=== PATIENT | male | born 1970 | race Caucasian/White ===

== ENCOUNTER 2021-03-03 23:08 | Emergency (ER) | payer OTHER ==
[~2021-03-03] VITALS: Ht 182.9 cm; Wt 65.8 kg
[~2021-03-03 23:08] MED LIST: Insulin Detemir SC
[2021-03-04 01:20] LABS: Basophils # (auto) 0.1 10 ^3/uL (0-0.2); Basophils % (auto) 0.5 % (0.0-2.0); Eosinophils # (auto) 0 10 ^3/uL (0-0.8); Hemoglobin 12.4 g/dL (13.5-17.5); Lymphocytes # (auto) 0.7 10 ^3/uL (0.4-5.4); Lymphocytes % (auto) 4.6 % (10.0-50.0); Mean Corpuscular Hemoglobin 32.6 pg (28.0-32.0); Mean Corpuscular Hgb Conc. 34.6 g/dL (32.0-36.0); Mean Corpuscular Volume 94.2 fL (80.0-100.0); Monocytes # (auto) 1.4 10 ^3/uL (0-1.3); Monocytes % (auto) 9.9 % (0.0-12.0); Neutrophils # (auto) 12.4 10 ^3/uL (1.6-8.6); Red Blood Cells 3.82 10^6/uL (4.5-5.90); Red Cell Distribution Width 12.6 % (11.8-14.3); White Blood Cell 14.6 10^3/uL (4.4-10.8)
[2021-03-04 01:35] LABS: Urine Bacteria FEW /hpf (None Seen); Urine Blood Negative /uL (Negative); Urine Hyaline Cast MOD /lpf (0 - 2); Urine Mucus FEW (None Seen); Urine Specific Gravity 1.014 (1.001-1.035); Urine Sperm PRESENT /hpf (None Seen); Urine WBC 1 /hpf (0 - 3)
[2021-03-04 01:36] LABS: Albumin 2.9 g/dL (3.4-5.0); BUN/Creatinine Ratio 14.5; Calcium 7.4 mg/dL (8.5-10.1); Potassium 4.4 mmol/L (3.5-5.1)
[2021-03-04 01:48] LABS: Bilirubin, Total 0.7 mg/dL (0.2-1.0); Total Protein 6.2 g/dL (6.4-8.2)
[2021-03-04] MEDS ORDERED: InsuLIN REG 1unit/0.01ml Soln (100units/ml) IV ONE (02:15)
[2021-03-04] MEDS ORDERED: SODIUM CHLORIDE 0.9% 1,000 ML IV ONE (02:15)
[2021-03-04] MEDS ORDERED: DEXTROSE (50%) 50ML SYRG IV PRN (03:45)
[2021-03-04] MEDS ORDERED: INSULIN LANTUS (GLARGINE) 1 /0.01ml (100units/ml) SC ONE (03:45)
[2021-03-04] MEDS ORDERED: InsuLIN REG 1unit/0.01ml Soln (100units/ml) ONE (03:54)
[2021-03-04] MEDS: SODIUM CHLORIDE 0.9% 1,000 ML IV SCH ×2 (03:59→06:07)
[2021-03-04] MEDS: InsuLIN R (HUMAN) 100 UNITS in SODIUM CHL 0.9% 99 ML IV SCH ×2 (03:59→04:59)
[2021-03-04] MEDS: ACCU-CHEK COMFORT CURVE STRIP VI SCH ×5 (04:57→10:30)
[2021-03-04] MEDS ORDERED: SODIUM CHLORIDE 0.9% 1,000 ML IV SCH ×2 (07:45→09:45)
[2021-03-04 09:59] LABS: BUN/Creatinine Ratio 15.5; Calcium 7.4 mg/dL (8.5-10.1); Potassium 3.8 mmol/L (3.5-5.1)
[2021-03-04] MEDS ORDERED: D5W/SOD CHLO 0.9% 1,000 ML IV ONE (10:00)
[2021-03-04 10:28] VITALS: BP 103/67
[2021-03-05] MEDS ORDERED: INSULIN LANTUS (GLARGINE) 1 /0.01ml (100units/ml) SC SCH (10:00)
== END 2021-03-04 10:52 | disposition short-term general hospital (02) ==
LOC: EDBD 23:08 → ER 23:08
DX: E11.65 Type 2 diabetes mellitus with hyperglycemia (principal); R07.89 Other chest pain; Z98.890 Other specified postprocedural states; Z20.822 Contact with and (suspected) exposure to COVID-19
CPT/HCPCS: 36415; 36600; 71045; 80048; 80053; 81001; 82010; 82805; 82962; 83690; 83930; 84100; 85025; 87426; 93005; 96361; 96365; 96366; 96367; 96372; 96376; 99285; J1815; J7030

== ENCOUNTER 2024-08-18 00:19 | Inpatient (IN) | payer OTHER ==
[~2024-08-18] VITALS: Ht 180.3 cm; Wt 85.0 kg
--- NOTE | 2024-08-18 00:57 | ED.PDOC ---
History of Present Illness HPI Comments 53 y/o M, with a history of ALE, DKA, metabolic encephalopathy, SIRS, mitral valve prolapse s/p aortic valve replacement, and DMII w/insulin use, is BIBA for c/o hypoglycemia, today. Per EMS report, patient was found with a blood glucose of 44 on scene after staff were called, due to patient acting altered from his usual baseline. En route, patient was given 1x D10 dose, with blood glucose levels remeasured at a value of 200 s/p. Upon arrival to ED, patient is stated to be A&Ox2, currently, and had a remeasured blood glucose value of 82. Patient, at time of assessment, has no recollection of his insulin medication names or series of events that led to his visit and denies having any additional symptoms. Per previous ED medical records, patient takes Lantus 30 units SC qam and Humulin R per patient's sliding scale, which the patient, upon inquiry, admits to. Chief Complaint: Hypoglycemia Time Seen by MD: 00:25 Primary Care Provider: UNKNOWN Reviewed Notes: Nurses Notes, Developmental Writing Instructor Notes, Medications, Allergies Allergies: Coded Allergies: NO KNOWN ALLERGIES (Unverified , 10/31/14) Home Meds Active Scripts [Insulin Detemir] 100 UNITS/ML UNITS No Conflict Check, 30 UNITS SC QAM, #200 UNITS Prov:HIRAL ORELLANA MD 11/03/14 Information Source: Patient, Emergency Med Personnel Mode of Arrival: EMS Severity: Moderate Timing: Hours Duration: Since onset Prehospital treatment: 12 Lead EKG, Accucheck, Casting And Pasting Supervisor, Other (D10) Past Medical History PAST MEDICAL HISTORY: DM (type II w/insulin use ) Past Medical History (Other): ALE, DKA, metabolic encephalopathy, SIRS, mitral valve prolapse s/p aortic valve prolapse Lantus 30 units SC qam. Humulin R per patient's sliding scale. Surgical History (Other): Aortic valve replacement Family History Family History: Unknown Social History Smoker: Cigarettes Alcohol: Heavy Drugs: Denies Drug Use Lives In: Home Endocrine: reports: others (hypoglycemia ) All Other Systems: Reviewed and Negative (negative unless otherwise stated above or in HPI) Physical Exam General Appearance: No Apparent Distress, Normal, Other (tired appearing ) HEENT: Normal ENT Inspection, Pharynx Normal, TMs Normal Neck: Full Range of Motion, Non-Tender, Normal, Normal Inspection Respiratory: Chest Non-Tender, Lungs Clear, No Accessory Muscle Use, No Respiratory Distress, Normal Breath Sounds Cardiovascular: No Edema, No JVD, No Murmur, No Gallop, Normal Peripheral Pulses, Regular Rate/Rhythm Breast Exam: Deferred Gastrointestinal: No Organomegaly, Non Tender, No Pulsatile Mass, Normal Bowel Sounds, Soft Genitalia: Deferred Pelvic: Deferred Rectal: Deferred Extremities: No calf tenderness, Normal capillary refill, Normal inspection, Normal range of motion, Non-tender, No pedal edema Musculoskeletal : Apperance: Normal Neurologic: Alert, stockroom helper II-XII nml as Tested, No Motor Deficits, Normal Affect, Normal Mood, No Sensory Deficits Cerebellar Function: Normal Reflexes: Normal Skin: Dry, Normal Color, Warm Lymphatic: No Adenopathy Was a procedure done? Was a procedure done?: No Differential Dx Considerations may include: hypoglycemia, inappropriate medication dosage, encephalopathy X-Ray, Labs, Meds, VS Vital Signs Date Time Temp Pulse Resp B/P (MAP) Pulse Ox O2 Delivery O2 Flow Rate FiO2 08/18/24 02:58 97.7 08/18/24 02:25 81 14 97 Room Air* 0 21 08/18/24 02:25 97.7 81 14 136/95 (109) 97 97.7 08/18/24 00:25 99.2 104 18 102/64 (77) 96 Lab Test 08/18/24 02:07 08/18/24 01:33 08/18/24 01:32 08/18/24 00:55 Range/Units POC Glucose 146 H 26 *L 29 *L 70-106 mg/dl White Blood Count 8.0 4.4-10.8 10^3/uL Red Blood Count 3.55 L 4.5-5.90 10^6/uL Hemoglobin 11.0 L 13.5-17.5 g/dL Hematocrit 32.9 L 41.0-53.0 % Mean Corpuscular Volume 92.6 80.0-100.0 fL Mean Corpuscular Hemoglobin 30.9 28.0-32.0 pg Mean Corpuscular Hemoglobin Concent 33.4 32.0-36.0 g/dL Red Cell Distribution Width 14.2 11.8-14.3 % Platelet Count 190 140-450 10^3/uL Mean Platelet Volume 9.5 6.9-10.8 fL Neutrophils (%) (Auto) 70.8 37.0-80.0 % Lymphocytes (%) (Auto) 18.4 10.0-50.0 % Monocytes (%) (Auto) 7.3 0.0-12.0 % Eosinophils (%) (Auto) 2.3 0.0-7.0 % Basophils (%) (Auto) 1.2 0.0-2.0 % Neutrophils # (Auto) 5.7 1.6-8.6 10 ^3/uL Lymphocytes # (Auto) 1.5 0.4-5.4 10 ^3/uL Monocytes # (Auto) 0.6 0-1.3 10 ^3/uL Eosinophils # (Auto) 0.2 0-0.8 10 ^3/uL Basophils # (Auto) 0.1 0-0.2 10 ^3/uL Nucleated Red Blood Cells 0.0 % Sodium Level 144 136-145 mmol/L Potassium Level 4.3 3.5-5.1 mmol/L Chloride Level 112 H 98-107 mmol/L Carbon Dioxide Level 25 20-31 mmol/L Anion Gap 7 5-15 Blood Urea Nitrogen 25 H 9-23 mg/dL Creatinine 1.54 H 0.700-1.30 mg/dL Glomerular Filtration Rate Calc 54 >90 mL/min BUN/Creatinine Ratio 16.2 10.0-20.0 Serum Glucose 33 *L 74-106 mg/dL Calcium Level 9.6 8.7-10.4 mg/dL Total Bilirubin 0.2 0.2-1.0 mg/dL Aspartate Amino Transferase (AST) 53 H 13-40 U/L Alanine Aminotransferase (ALT) 56 H 7-40 U/L Alkaline Phosphatase 70 46-116 U/L Total Protein 6.3 5.7-8.2 g/dL Albumin 3.6 3.2-4.8 g/dL Current Medications Medications (Trade) Dose Ordered Sig/Staci Route Start Time Stop Time Status Last Admin Dextrose 100 ml ONCE ONCE IV 08/18/24 01:45 08/18/24 01:46 DC 08/18/24 01:41 Acetaminophen (Tylenol Tablet) 1,000 mg ONCE ONCE PO 08/18/24 02:15 08/18/24 02:16 DC 08/18/24 02:15 [facility] [id number] [facility] [address] Ph: [phone] DIAGNOSTIC IMAGING Diagnostic Imaging Report : [id number] Signed PATIENT: SHELBY MCCOLLUM ACCT: [id number] UNIT: [id number] : 1970 LOC: ER ROOM / BED: / AGE / SEX: 53 / M ADM STATUS: REG ER SERVICE ORDERING PHYSICIAN: YAHIR LOPEZ MD PROCEDURE(s): CXRP - CHEST PORTABLE REASON: weakness, hypoglycemia ORDER NUMBER(s): [id number], ACCESSION NUMBER(s): [id number] CHEST RADIOGRAPH Indication: weakness, hypoglycemia Technique: Single frontal view of the chest was obtained Comparison: CHEST XRAY 1 VIEW on DOS: 03/04/21 Findings/ IMPRESSION: Postsurgical changes of the mediastinum. Right lower lung zone patchy opacification concerning for developing airspace disease. Chronic right posterior rib fractures. ATED BY: KENA CORREIA DO DICTATED DATE/TIME: 08/18/24114 SIGNED BY: KENA CORREIA DO SIGNED DATE/TIME: 08/18/24114 CC: Time of 1ST Reevaluation: 00:55 Reevaluation 1ST: Unchanged Patient Education/Counseling: Diagnosis, Treatment Family Education/Counseling: No Family Present Additional Information I reviewed the following notes from patient's past medical encounters: ED physician document 03/03/2021 and 10/31/2014 and hospital admission discharge summary report on 11/03/2014 The following tests were ordered, and results were reviewed by me: CXR, drug screen, UA, CMP, CBC \ Additional Information was gathered from interviewing the following independent historians: EMT I reviewed and agreed with the following test results read by other providers: CXR I discussed treatment and results with medical personnel Departure 1 Departure Time of Disposition: 03:47 ([place] [id number]. We will admit patient for uncontrolled diabetes.) Impression: Primary Impression: Uncontrolled diabetes mellitus Qualified Codes: E11.649 - Type 2 diabetes mellitus with hypoglycemia without coma Additional Impression: Metabolic encephalopathy Disposition: 09 ADMITTED INPATIENT Admit to: Med Surg Condition: Serious Critical Care Note Critical Care Time?: Yes Critical care comment: Acute hypoglycemia Authorized and Performed by: Yahir Lopez MD Total critical care time: Approximately 38 minutes Due to a high probability of clinically significant, life threatening deterioration, the patient required my highest level of preparedness to intervene emergently and I personally spent this critical care time directly and personally managing the patient. This critical care time included obtaining a history; examining the patient; pulse oximetry; ordering and review of studies; arranging urgent treatment with development of a management plan; evaluation of patient's response to treatment; frequent reassessment; and, discussions with other providers. This critical care time was performed to assess and manage the high probability of imminent, life-threatening deterioration that could result in multi-organ failure. It was exclusive of separately billable procedures and treating other patients and teaching time. Please see my other sections and the rest of the note for further information on patient assessment and treatment. Stability Stability form required: No Heart Score Heart Score: Heart Score Response (Comments) Value History N/A 0 EKG N/A 0 Age N/A 0 Risk Factors N/A 0 Troponin N/A 0 Total 0 I personally scribed for YAHIR LOPEZ MD ([email or web address]) on 08/18/24 at 00:57. Electronically submitted by Bret Barragan ([email or web address]). I personally scribed for YAHIR LOPEZ MD ([email or web address]) on 08/18/24 at 01:40. Electronically submitted by Bret Barragan ([email or web address]). YAHIR LOPEZ MD Aug 18, 2024 00:57
[2024-08-18 01:16] LABS: Basophils # (auto) 0.1 10 ^3/uL (0-0.2); Basophils % (auto) 1.2 % (0.0-2.0); Eosinophils # (auto) 0.2 10 ^3/uL (0-0.8); Eosinophils % (auto) 2.3 % (0.0-7.0); Hematocrit 32.9 % (41.0-53.0); Lymphocytes # (auto) 1.5 10 ^3/uL (0.4-5.4); Lymphocytes % (auto) 18.4 % (10.0-50.0); Mean Corpuscular Hemoglobin 30.9 pg (28.0-32.0); Mean Corpuscular Hgb Conc. 33.4 g/dL (32.0-36.0); Mean Corpuscular Volume 92.6 fL (80.0-100.0); Monocytes # (auto) 0.6 10 ^3/uL (0-1.3); Monocytes % (auto) 7.3 % (0.0-12.0); Neutrophils # (auto) 5.7 10 ^3/uL (1.6-8.6); Neutrophils % (auto) 70.8 % (37.0-80.0); Platelet Count (auto) 190 10^3/uL (140-450); Red Blood Cells 3.55 10^6/uL (4.5-5.90); Red Cell Distribution Width 14.2 % (11.8-14.3)
--- NOTE | 2024-08-18 01:17 | DVH ---
CHEST RADIOGRAPH Indication: weakness, hypoglycemia Technique: Single frontal view of the chest was obtained Comparison: CHEST XRAY 1 VIEW on DOS: 03/04/21 Findings/ IMPRESSION: Postsurgical changes of the mediastinum. Right lower lung zone patchy opacification concerning for de veloping airspace disease. Chronic right posterior rib fractures.
[2024-08-18 01:26] LABS: Alanine Aminotransferase 56 U/L (7-40); Albumin 3.6 g/dL (3.2-4.8); Alkaline Phosphatase 70 U/L (46-116); Anion Gap 7 (5-15); Aspartate Aminotransferase 53 U/L (13-40); BUN/Creatinine Ratio 16.2 (10.0-20.0); Blood Urea Nitrogen 25 mg/dL (9-23); Calcium 9.6 mg/dL (8.7-10.4); Carbon Dioxide 25 mmol/L (20-31); Chloride 112 mmol/L (98-107); Potassium 4.3 mmol/L (3.5-5.1); Sodium 144 mmol/L (136-145); Total Protein 6.3 g/dL (5.7-8.2)
[2024-08-18 01:27] LABS: Bilirubin, Total 0.2 mg/dL (0.2-1.0); Glucose 33 mg/dL (74-106)
[2024-08-18] MEDS: DEXTROSE (50%) 50ML SYRG IV ONE ×2 (01:41→05:41)
[2024-08-18] MEDS: DEXTROSE 50% SYRINGE 50 ML IV ONE ×2 (01:41→01:42)
[2024-08-18] MEDS: ACETAMINOPHEN 500 MG TAB or CAP PO ONE (02:15)
[2024-08-18] MEDS: ACETAMINOPHEN 325 MG TAB PO ONE (02:15)
[2024-08-18 02:25] VITALS: PULSE 81; RESP 14; O2SAT 97
[2024-08-18 02:58] VITALS: TEMP 97.7
[2024-08-18] MEDS: D5W/LACTATED RINGERS 1,000 ML IV ONE (03:57)
[2024-08-18] MEDS: cefTRIAXone 1GM/50ML D5W 50 ML IV SCH (05:30)
--- NOTE | 2024-08-18 05:30 | DVHHPRES ---
History of Present Illness Resident Creating Document: ANGELICA CARLSON RESIDENT History of Present Illness Patient is a 53-year-old male with past medical history of type 2 diabetes diagnosed 15 years ago, mitral valve prolapse s/p mitral valve replacement 15 years ago, paroxysmal atrial fibrillation, multiple episodes of DKA, who came in due to hypoglycemia. Patient remains a little confused/foggy about the details of how he ended up in the hospital, however, A&O x4. According to the patient, the last thing he remembers is going to bed in the next thing he remembers is waking up in the hospital. Blood glucose in the scene was noted to be 44 and patient was subsequently given 1x D10 dose, with blood glucose levels remeasured at a value of 200 s/p. In the ER patient was noted to have a blood glucose of 33 and he was subsequently given 2 amp D50, after which we measured blood glucose was in the 70s, then patient was provided with 2 times sugar, 2 times or induced, after which blood glucose was 146. Per patient, he took his Lantus 25 units in the morning, Humalog 10 units in the day and Humalog 10 units right before dinner. Patient denies any changes in his appetite, has alcoholic drink was on Saturday night. Review of systems is negative. Past Medical History type 2 diabetes diagnosed 15 years ago, mitral valve prolapse s/p mitral valve replacement 15 years ago, paroxysmal atrial fibrillation, multiple episodes of DKA Past Surgical History Mitral valve replacement Past Social History Smoking: Quit smoking 2 months ago, prior to that was smoking half a pack per day for 20 years Alcohol: 2-3 drinks on weekend, last drink on Saturday night Drugs: Denies Review of Systems Constitutional: No: Fever, Chills, Sweats, Weakness, Malaise, Other Eyes: No: Pain, Vision change, Conjunctivae inflammation, Eyelid inflammation, Other, Redness ENT: No: Ear pain, Ear discharge, Nose pain, Nose discharge, Nose congestion, Mouth pain, Mouth swelling, Throat pain, Throat swelling, Other Respiratory: No: Cough, Dry, Shortness of breath, SOB with excertion, Wheezing, Hemoptysis, Pleuritic Pain, Sputum, Wheezing, Other Cardiovascular: No: Chest Pain, Palpitations, Orthopnea, Paroxysmal Noc. Dyspnea, Edema, Lt Headedness, Other Gastrointestinal: No: Nausea, Vomiting, Abdominal Pain, Diarrhea, Constipation, Melena, Hematochezia, Other Genitourinary: No Dysuria, No Frequency, No Incontinence, No Hematuria, No Retention, No Other Musculoskeletal: No: other, neck pain, shoulder pain, arm pain, back pain, hand pain, leg pain, foot pain Skin: No: Rash, Lesions, Jaundice, Bruising, Other Neurological: No: Weakness, Numbness, Incoordination, Change in speech, Confusion, Seizures, Other Allergies: Coded Allergies: NO KNOWN ALLERGIES (Unverified , 10/31/14) Exam Vital Signs Vital Signs Date Time Temp Pulse Resp B/P (MAP) Pulse Ox O2 Delivery O2 Flow Rate FiO2 08/18/24 04:00 95 9 133/92 (106) 95 08/18/24 02:58 97.7 08/18/24 02:25 Room Air* 0 21 General Appearance: Alert, Oriented X3, Cooperative, No acute distress HEENT: Atraumatic, PERRLA, Other (Dry mucous membranes) Respiratory: Other (Decreased air entry bilaterally) Cardiovascular: Regular rate, No murmurs Abdominal: Normal bowel sounds, Soft, No tenderness Extremities: No clubbing, No cyanosis, No edema Skin: No rashes, No significant lesion Neuro: Normal speech, Strength at 5/5 X4 ext, Sensation intact Psych/Mental Status: Mental status NL, Mood NL Labs/Xrays Labs Test 08/18/24 02:07 08/18/24 00:55 Range/Units POC Glucose 146 H 70-106 mg/dl White Blood Count 8.0 4.4-10.8 10^3/uL Red Blood Count 3.55 L 4.5-5.90 10^6/uL Hemoglobin 11.0 L 13.5-17.5 g/dL Hematocrit 32.9 L 41.0-53.0 % Mean Corpuscular Volume 92.6 80.0-100.0 fL Mean Corpuscular Hemoglobin 30.9 28.0-32.0 pg Mean Corpuscular Hemoglobin Concent 33.4 32.0-36.0 g/dL Red Cell Distribution Width 14.2 11.8-14.3 % Platelet Count 190 140-450 10^3/uL Mean Platelet Volume 9.5 6.9-10.8 fL Neutrophils (%) (Auto) 70.8 37.0-80.0 % Lymphocytes (%) (Auto) 18.4 10.0-50.0 % Monocytes (%) (Auto) 7.3 0.0-12.0 % Eosinophils (%) (Auto) 2.3 0.0-7.0 % Basophils (%) (Auto) 1.2 0.0-2.0 % Neutrophils # (Auto) 5.7 1.6-8.6 10 ^3/uL Lymphocytes # (Auto) 1.5 0.4-5.4 10 ^3/uL Monocytes # (Auto) 0.6 0-1.3 10 ^3/uL Eosinophils # (Auto) 0.2 0-0.8 10 ^3/uL Basophils # (Auto) 0.1 0-0.2 10 ^3/uL Nucleated Red Blood Cells 0.0 % Sodium Level 144 136-145 mmol/L Potassium Level 4.3 3.5-5.1 mmol/L Chloride Level 112 H 98-107 mmol/L Carbon Dioxide Level 25 20-31 mmol/L Anion Gap 7 5-15 Blood Urea Nitrogen 25 H 9-23 mg/dL Creatinine 1.54 H 0.700-1.30 mg/dL Glomerular Filtration Rate Calc 54 >90 mL/min BUN/Creatinine Ratio 16.2 10.0-20.0 Serum Glucose 33 *L 74-106 mg/dL Calcium Level 9.6 8.7-10.4 mg/dL Total Bilirubin 0.2 0.2-1.0 mg/dL Aspartate Amino Transferase (AST) 53 H 13-40 U/L Alanine Aminotransferase (ALT) 56 H 7-40 U/L Alkaline Phosphatase 70 46-116 U/L Total Protein 6.3 5.7-8.2 g/dL Albumin 3.6 3.2-4.8 g/dL Assessment/Plan Assessment/Plan Severe hypoglycemia, likely due to incorrect insulin dosage Type 2 diabetes, insulin dependent, uncontrolled HbA1c 10.5 - blood glucose: 33, 29, 26, 146 - IV D5W/LR at 150 cc/hour - placed on mild sliding scale Acute hypoxic respiratory failure Possible community-acquired pneumonia: Gram-positive versus Gram-negative - CXR: Postsurgical changes of the mediastinum. Right lower lung zone patchy opacification concerning for developing airspace disease. Chronic right posterior rib fractures - ordered respiratory culture, COVID, influenza testing - IV ceftriaxone, p.o. azithromycin 500 mg ALE, likely hemodynamically mediated/VMN on possible CKD stage III - monitor Paroxysmal atrial fibrillation; CHADS VASc 1 - resumed home medication Eliquis 5 mg b.i.d. History of mitral valve prolapse s/p mitral valve replacement - monitor Goals of care: Full code, discussed for >16 minutes on 08/18/2024 Plan discussed with patient Plan discussed with Dr. Mcneil Plan discussed with: Patient, Other (RN) Date of Service: Aug 18, 2024 Billing Provider: MARIA R MCNEIL MD Common Visit Codes: [id number] INP/OBS CARE (HIGH) ANGELICA CARLSON RESIDENT Aug 18, 2024 05:30 MARIA R MCNEIL MD Aug 18, 2024 17:48
[2024-08-18] MEDS: InsuLIN REG 1unit/0.01ml Soln (100units/ml) SC ONE (05:37)
[2024-08-18] MEDS: ACCU-CHEK COMFORT CURVE STRIP VI ONE (05:37)
[2024-08-18] MEDS: AZITHROMYCIN 250 MG TAB PO SCH (05:41)
--- NOTE | 2024-08-18 06:41 | ECG ---
[facility] Test Date: 2024-08-18 Test Time: 05:38:18 Pat Name: SHELBY MCCOLLUM Department: ED Room: [address] [place] [address] Gender: M Pedicurist: GALEN : 1970 Requested By: PASTORA PERDOMO Order Number: [id number] Reading MD: Measurements Intervals [place] Rate: 102 P: 0 MT: 0 QRS: 59 QRSD: 79 T: 42 QT: 373 QTc: 486 Interpretive Statements Atrial fibrillation Borderline prolonged QT interval Please click the below link to view image of tracing.
[2024-08-18 07:04] LABS: Rapid Influenza A Negative (Negative); Rapid Influenza B Negative (Negative)
[2024-08-18 07:05] LABS: COVID19 ANTIGEN SOFIA FIA NEGATIVE (NEGATIVE)
[2024-08-18 09:59] VITALS: BP 135/89; PULSE 99; RESP 16; O2SAT 96
[2024-08-18] MEDS: APIXABAN 5 MG TAB PO SCH (10:15)
--- NOTE | 2024-08-18 12:07 | DVHPN2 ---
Progress Note Date Seen: Aug 18, 2024 Has the PT tested + for MRSA If YES, has PT been informed?: No Medical Necessity Reason Pt with a Central, PICC or Fol: No Subjective Patient reports: No new complaints Review of Systems: HEENT:Normal, CVS:Normal, RESPIRATORY:Normal, GI:Normal, :Normal, MSK:Normal, NEURO:Normal Objective vital signs Vital Sign Date Time Temp Pulse Resp B/P (MAP) Pulse Ox O2 Delivery O2 Flow Rate FiO2 08/18/24 09:59 99 16 135/89 (104) 96 08/18/24 02:58 97.7 08/18/24 02:25 Room Air* 0 21 Total Intake and Output 08/17/24 08/17/24 08/18/24 15:00 23:00 07:00 Intake Total 300 ml Balance 300 ml medications Current Medications Medications Dose Ordered Sig/Staci Route Start Time Stop Time Status Last Admin Dose Admin Ceftriaxone Sodium 50 ml @ 100 mls/hr DAILY@09 IV 08/18/24 05:30 Azithromycin 500 mg DAILY PO 08/18/24 05:30 08/18/24 05:41 500 MG Apixaban 5 mg BID PO 08/18/24 10:00 08/18/24 10:15 5 MG Examination: GENERAL:Normal, HEENT:Normal, NECK:Normal, LUNGS:Normal, CVS:Normal, ABDOMEN:Normal, MSK:Normal, SKIN:Normal, NEURO:Normal, :Normal laboratory and microbiology Laboratory Tests 08/18/24 00:55 Test 08/18/24 00:55 Range/Units Serum Glucose 33 *L 74-106 mg/dL Problem List/Assessment/Plan Problem List/Assessment/Plan #1 encephalopathy- hypoglycemic #2 dm: ssi #3 ?right pneumonia- gram positive/negative: iv antibiotics, ct chest #4 s/p mvr #5 s/p a fib with secondary hypercoaguable state: on eliquis #6 acute renal failure ?vasomotor nephropathy ? dehydration: ivf Plan discussed with: Patient Date of Service: Aug 18, 2024 Billing Provider: CARLENE GONZALEZ MD Common Visit Codes: [id number] INP/OBS CARE(HIGH) CARLENE GONZALEZ MD Aug 18, 2024 12:07
[2024-08-18] MEDS: SODIUM CHLORIDE 0.9% 1,000 ML IV SCH (12:15)
[2024-08-18] MEDS ORDERED: DEXTROSE (50%) 50ML SYRG IV PRN (12:15)
--- NOTE | 2024-08-18 13:14 | DVH ---
Procedure: CT CHEST WITHOUT CONTRAST Reason for study/Clinical History: RIGHT LUNG INFILTRATE Comparison Study: Chest radiograph dated 08/18/2024 Exam Date: 08/18/2024 12:08 PM TECHNIQUE: Multidetector CT of the chest was performed from the lung apices to the upper abdomen with out the use of intravenous contract. Axial, coronal and sagittal multiplanar reformats were performed . Radiation Dose Information: CT Dose: CTDI volume is 8.99 mGy. Dose-length product is 341.73 mGy*cm The dose indicators for CT are the volume Computed Tomography (CT) Dose Index (CTDIvol) and the Dose Length Product (DLP), and are measured in units of mGy and mGy-cm, respectively. These indicators are not patient dose, but values generated from the CT scanner acquisition factors. The report includes radiation exposure data for exposures received during this examination. FINDINGS: Lower neck: Normal thyroid. Lungs: Tree-in-bud nodularity in the left lung base. Patchy airspace opacity in the right middle lobe . Dependent atelectasis. Heart/Vascular Structures: Cardiomegaly. Vascular calcifications of the aorta. Enlarged main pulmon richa artery measuring 3.8 cm. Cardiac valve replacement. Lymph Nodes: No adenopathy Pleura: Trace left pleural effusion. Musculoskeletal: No acute osseous abnormality. Median sternotomy. Soft tissues: Normal. Upper abdomen: Distended stomach. IMPRESSION: Patchy airspace opacities in the right middle lobe. Tree-in-bud nodularity in the left lung base. These findings are likely sales and merchandising representative of atypical infection. Cardiomegaly and enlarged main pulmonary artery suggesting possible component of underlying pulmonary arterial hypertension. Trace left pleural effusion. Radiation optimization: All CT scans at this facility use at least one of these dose optimization kelvin hniques: automated exposure control mA and/or kV adjustment per patient size (includes targeted exam s where dose is matched to clinical indication) or iterative reconstruction.
[2024-08-18] MEDS ORDERED: InsuLIN REG 1unit/0.01ml Soln (100units/ml) SC SCH (17:00)
[2024-08-18] MEDS ORDERED: ACCU-CHEK COMFORT CURVE STRIP VI SCH (17:00)
--- NOTE | 2024-08-19 10:10 | DVHDS ---
DATE OF DISCHARGE: 08/18/2024 The patient left against medical advice on 08/18/2024. HISTORY OF PRESENT ILLNESS: The patient is a 53-year-old gentleman who was admitted with history of altered level of consciousness and low blood sugar. He has a history of type 2 diabetes as well as mitral valve replacement, paroxysmal AFib and previous episodes of DKA. HOSPITAL COURSE: The patient had a chest x-ray that showed a right lower lobe infiltrate. CT chest showed patchy airspace opacities in the right middle lobe along with evidence suggesting pulmonary arterial hypertension. The patient's blood sugar improved, although at admission, it was 26. His A1c was 10.5. Creatinine was 1.5. The patient left against medical advice on 08/18/2024. FINAL DIAGNOSES: Therefore, * Encephalopathy, likely hypoglycemic. * Diabetes mellitus. * Right middle lobe pneumonia, gram-positive, gram-negative. * History of mitral valve replacement. * Status post atrial fibrillation secondary to hypercoagulable state. * Acute renal failure, questionable vasomotor nephropathy. * Likely pulmonary arterial hypertension. * Transaminitis. * Noncompliance. MD ABIOLA Gupta/ANTOINE TID: [id number] RECEIPT: [id number]
== END 2024-08-18 14:23 | disposition left against medical advice (07) | DRG 637 ==
LOC: EDBD 00:19 → ER 00:19 → OVERFLOW 05:29
PROVIDERS: ADMIT Internal Medicine; ATTEND Internal Medicine
DX: E11.649 Type 2 diabetes mellitus with hypoglycemia without coma (principal); G93.41 Metabolic encephalopathy; J15.69 Pneumonia due to other Gram-negative bacteria; J96.01 Acute respiratory failure with hypoxia; J15.9 Unspecified bacterial pneumonia; D68.59 Other primary thrombophilia; N17.0 Acute kidney failure with tubular necrosis; I48.0 Paroxysmal atrial fibrillation; I34.1 Nonrheumatic mitral (valve) prolapse; I27.21 Secondary pulmonary arterial hypertension; Z53.29 Procedure and treatment not carried out because of patient's decision for other reasons; R74.01 Elevation of levels of liver transaminase levels; Z79.4 Long term (current) use of insulin; Z95.2 Presence of prosthetic heart valve; Z87.891 Personal history of nicotine dependence; Z91.199 Patient's noncompliance with other medical treatment and regimen due to unspecified reason
CPT/HCPCS: 36415; 71045; 71250; 80053; 82962; 83036; 85025; 87426; 87804; 93005; G0378

== ENCOUNTER 2025-01-09 09:35 | Inpatient (IN) | payer OTHER ==
[2025-01-09] VITALS (18 sets, daily range): BP systolic 110–150; BP diastolic 63–95; PULSE 59–120; RESP 10–24; TEMP 98.2–98.8; O2SAT 93–98
[~2025-01-09] VITALS: Ht 175.3 cm; Wt 89.4 kg
[2025-01-09] MEDS: MAGNESIUM SULFATE 1GM/100ML 200 ML IV ONE (09:39)
[2025-01-09] MEDS: CALCIUM GLUC 1,000mg/50ml-NS 100 ML IV ONE (09:39)
[2025-01-09] MEDS: MAGNESIUM SULFATE 1GM/100ML 100 ML IV SCH (09:45)
[2025-01-09] MEDS: SODIUM CHLORIDE 0.9% 1,000 ML IV ONE ×2 (09:45→12:15)
[2025-01-09] MEDS: CALCIUM GLUC 1,000mg/50ml-NS 50 ML IV SCH (09:45)
--- NOTE | 2025-01-09 09:53 | ED.PDOC ---
HPI Comments 54y M who presents to the ED via EMS for chief complaint of chest pain. EMS states pt notes pt has been having generalized weakness with nausea, vomiting and diarrhea since earlier this AM getting progressively worse. Per EMS, arrived on scene and noted pt was pale and diaphoretic and vitals were checked. Pt has noted low BP and was given 1 L fluids with associated Zofran. EMS noted pt had accu check in the 400's with history of DM. EMS did EKG which showed possible STEMI and pt was brought to the ED. Pt presents to the ED, in noted distress but repeat EKG did not show STEMI. Time Seen by MD: 09:51 Primary Care Provider: Hungk Reviewed Notes: Faith Healer Notes Allergies: Coded Allergies: NO KNOWN ALLERGIES (Unverified , 10/31/14) Home Meds Active Scripts [Insulin Detemir] 100 UNITS/ML UNITS No Conflict Check, 30 UNITS SC QAM, #200 UNITS Prov:HIRAL ORELLANA MD 11/03/14 Information Source: Patient, Emergency Med Personnel Mode of Arrival: EMS Past Medical History PAST MEDICAL HISTORY: DM Family History Family History: Unknown Social History Smoker: Cigarettes Alcohol: Heavy Drugs: Denies Drug Use Lives In: Home Constitutional: denies: chills, diaphoresis, fatigue, fever, malaise, sweats, weakness, others EENTM: denies: blurred vision, double vision, ear bleeding, ear discharge, ear drainage, ear pain, ear ringing, eye pain, eye redness, hearing loss, mouth pain, mouth swelling, nasal discharge, nose bleeding, nose congestion, nose pain, photophobia, tearing, throat pain, throat swelling, voice changes, others Respiratory: reports: shortness of breath; denies: cough, hemoptysis, orthopnea, SOB at rest, SOB with excertion, stridor, wheezing, others Cardiovascular: reports: chest pain; denies: dizzy spells, diaphoresis, Dyspnea on exertion, edema, irregular heart beat, left arm pain, lightheadedness, palpitations, PND, syncope, others Gastrointestinal: denies: abdomen distended, abdominal pain, blood streaked bowels, constipated, diarrhea, dysphagia, difficulty swallowing, hematemesis, melena, nausea, poor appetite, poor fluid intake, rectal bleeding, rectal pain, vomiting, others Genitourinary: denies: burning, dysuria, flank pain, frequency, hematuria, incontinence, penile discharge, penile sore, pain, testicle pain, testicle swelling, urgency, others Neurological: denies: dizziness, fainting, headache, left sided numbness, left sided weakness, numbness, paresthesia, pre-existing deficit, right sided numbness, right sided weakness, seizure, speech problems, tingling, tremors, weakness, others Musculoskeletal: denies: back pain, gout, joint pain, joint swelling, muscle pain, muscle stiffness, neck pain, others Integumetry: denies: bruises, change in color, change in hair/nails, dryness, laceration, lesions, lumps, rash, wounds, others Allergic/Immunocompromised: denies: Difficulty Healing, Frequent Infections, Hives, Itching, others Hematologic/Lymphatic: denies: anemia, blood clots, easy bleeding, easy bruising, swollen glands, others Endocrine: denies: excessive hunger, excessive sweating, excessive thirst, excessive urination, flushing, intolerance to cold, intolerance to heat, unexplained weight gain, unexplained weight loss, others Psychiatric: denies: anxiety, bipolar disorder, depression, hopeless, panic disorder, schizophrenia, sleepless, suicidal, others All Other Systems: Reviewed and Negative Physical Exam General Appearance: Moderate Distress HEENT: Normal ENT Inspection, Pharynx Normal, TMs Normal Neck: Full Range of Motion, Non-Tender, Normal, Normal Inspection Respiratory: Chest Non-Tender, Lungs Clear, No Accessory Muscle Use, No Respiratory Distress, Normal Breath Sounds Cardiovascular: Tachycardia, Other (tachypneic, diaphoretic, ) Breast Exam: Deferred Gastrointestinal: No Organomegaly, Non Tender, No Pulsatile Mass, Normal Bowel Sounds, Soft Genitalia: Deferred Pelvic: Deferred Rectal: Deferred Extremities: No calf tenderness, Normal capillary refill, Normal inspection, Normal range of motion, Non-tender, No pedal edema Musculoskeletal : Apperance: Normal Neurologic: Alert, senior counsel II-XII nml as Tested, No Motor Deficits, Normal Affect, Normal Mood, No Sensory Deficits Cerebellar Function: Normal Reflexes: Normal Skin: Dry, Normal Color, Warm Lymphatic: No Adenopathy Was a procedure done? Was a procedure done?: Yes Sedation Sedation?: No Central Line Recorder of insertion practice: Youth Coordinator Occupation of instructional technology instructor: Attending Physician Indication: Hypotension, CVP monitoring Room prepared for procedure: Yes Youth Coordinator performed hand hygien: Yes Maximal sterile barrier precau: Sterlie gloves, Large sterlie drape Skin preparation completely dr: Yes Insertion site: Right, Femoral Central line catheter type: [id number] dialysis Informed consent obtained: Yes Risks/benefits/alt described: Yes CP Differential Dx Differential Diagnosis: A-fib, A-Flutter, Angina, Anxiety / Panic Attack, Atrial Dysrhythmia, Electrolyte Disorder, Heart Failure, FL, PVC's, Sinus Tachycardia, Ventricular Dysrhythmia, V-Fib, V-Tach Differential Diagnosis: CHF, HTN Essential, HTN Accelerated X-Ray, Labs, Meds, VS Vital Signs Date Time Temp Pulse Resp B/P (MAP) Pulse Ox O2 Delivery O2 Flow Rate FiO2 01/09/25 12:53 83 01/09/25 12:15 85/41 01/09/25 10:57 78 01/09/25 09:55 76 01/09/25 09:42 128 01/09/25 09:36 98.5 120 24 70/45 (53) 97 98.5 01/09/25 09:36 98.5 120 24 70/45 (53) 97 98.5 01/09/25 09:36 120 24 97 Nasal Cannula* 2 28 Lab Test 01/09/25 12:11 01/09/25 11:00 01/09/25 10:07 01/09/25 10:01 Range/Units Sodium Level 129 L 127 L 136-145 mmol/L Potassium Level 7.9 *H 7.8 *H 3.5-5.1 mmol/L Chloride Level 97 L 100 98-107 mmol/L Carbon Dioxide Level < 10 *L < 10 *L 20-31 mmol/L Anion Gap 22.20331 H 17.96866 H 5-15 Blood Urea Nitrogen 42 H 35 H 9-23 mg/dL Creatinine 2.65 H 2.46 H 0.700-1.30 mg/dL Glomerular Filtration Rate Calc 28 30 >90 mL/min BUN/Creatinine Ratio 15.8 14.2 10.0-20.0 Serum Glucose 428 *H 361 H 74-106 mg/dL Lactic Acid Level 7.1 *H 8.6 *H 0.4-2.0 mmol/L Calcium Level 9.0 8.9 8.7-10.4 mg/dL White Blood Count 7.9 4.4-10.8 10^3/uL Red Blood Count 3.71 L 4.5-5.90 10^6/uL Hemoglobin 11.2 L 13.5-17.5 g/dL Hematocrit 34.2 L 41.0-53.0 % Mean Corpuscular Volume 92.2 80.0-100.0 fL Mean Corpuscular Hemoglobin 30.1 28.0-32.0 pg Mean Corpuscular Hemoglobin Concent 32.7 32.0-36.0 g/dL Red Cell Distribution Width 14.7 H 11.8-14.3 % Platelet Count 170 140-450 10^3/uL Mean Platelet Volume 9.7 6.9-10.8 fL Neutrophils (%) (Auto) 83.0 H 37.0-80.0 % Lymphocytes (%) (Auto) 9.8 L 10.0-50.0 % Monocytes (%) (Auto) 6.4 0.0-12.0 % Eosinophils (%) (Auto) 0.1 0.0-7.0 % Basophils (%) (Auto) 0.7 0.0-2.0 % Neutrophils # (Auto) 6.5 1.6-8.6 10 ^3/uL Lymphocytes # (Auto) 0.8 0.4-5.4 10 ^3/uL Monocytes # (Auto) 0.5 0-1.3 10 ^3/uL Eosinophils # (Auto) 0 0-0.8 10 ^3/uL Basophils # (Auto) 0.1 0-0.2 10 ^3/uL Nucleated Red Blood Cells 0.0 % Phosphorus Level 6.0 H 2.4-5.1 mg/dL Magnesium Level 2.2 1.6-2.6 mg/dL Total Bilirubin 1.1 H 0.2-1.0 mg/dL Aspartate Amino Transferase (AST) 1941 H <34 U/L Alanine Aminotransferase (ALT) 763 H 7-40 U/L Alkaline Phosphatase 116 46-116 U/L Troponin I High Sensitivity 23 </=54 ng/L B-Type Natriuretic Peptide 302.39 0-100 pg/mL Total Protein 6.0 5.7-8.2 g/dL Albumin 3.5 3.2-4.8 g/dL Beta-Hydroxybutyric Acid 2.767 H < 0.4 mmol/L Plasma/Serum Blood Alcohol < 3.0 <10 mg/dL Blood Gas Specimen Type Venous Blood Gas Sample Site Vbg - n/a Blood Gas Patient Temperature 37.0 Arterial Blood Date Drawn [place] Test N/a Venous Blood pH 7.095 *L 7.320-7.430 Venous Blood pCO2 at Patient Temp 26.7 L 38.0-54.0 mmHg Venous Blood pO2 at Patient Temp 50.9 H 23.0-48.0 mmHg Venous Blood HCO3 8.0 L 22.0-29.0 mmol/L Venous Blood Base Excess -20.3 L -2.0-3.0 mmol/L Blood Gas Modality Room air FiO2 % 21.0 Blood Gas Critical Value Read Back Yes Blood Gas Notified Whom heron Vazquez Blood Gas Notified Time [id number] Blood Gas Notified By Laboratory Tech alex melgar Test 01/09/25 09:59 Range/Units POC Glucose 326 H 70-106 mg/dl Current Medications Medications (Trade) Dose Ordered Sig/Staci Route Start Time Stop Time Status Last Admin Calcium Gluconate/ Sodium Chloride 50 ml @ 100 mls/hr Q30M IV 01/09/25 09:45 01/09/25 10:44 DC 01/09/25 10:27 Magnesium Sulfate/ Dextrose 100 ml @ 100 mls/hr Q1H IV 01/09/25 09:45 01/09/25 11:44 DC 01/09/25 12:53 Sodium Chloride 1,000 ml @ 1,000 mls/hr Q1H ONCE IV 01/09/25 09:45 01/09/25 10:44 DC 01/09/25 09:45 Calcium Gluconate/ Sodium Chloride 50 ml @ 100 mls/hr Q30M STAT IV 01/09/25 11:01 01/09/25 11:30 DC 01/09/25 12:00 Sodium Chloride 1,000 ml @ 500 mls/hr Q2H IV 01/09/25 11:15 01/09/25 15:14 01/09/25 12:01 Insulin Human (Reg)/Sodium Chloride 100 ml @ 0.5 mls/hr Q24H IV 01/09/25 11:15 01/09/25 11:44 Insulin Glargine (Lantus) 15 units ONCE ONCE SC 01/09/25 11:15 01/09/25 11:16 DC 01/09/25 11:59 Sodium Bicarbonate 100 ml ONCE ONCE IV 01/09/25 11:15 01/09/25 11:16 DC 01/09/25 11:44 Norepinephrine Bitartrate 250 ml @ 3.75 mls/hr Q24H IV 01/09/25 12:15 01/09/25 12:15 Sodium Chloride 1,000 ml @ 1,000 mls/hr Q1H ONCE IV 01/09/25 12:15 01/09/25 13:14 01/09/25 12:15 [place] [id number] Ph: [phone] DIAGNOSTIC IMAGING Diagnostic Imaging Report : [id number] Signed PATIENT: SHELBY MCCOLLUM BACCT: [id number] UNIT: [id number] : 1970 LOC: ER ROOM / BED: / AGE / SEX: 54 / M ADM STATUS: REG ER SERVICE [id number] ORDERING PHYSICIAN: YAHIR LOPEZ MD PROCEDURE(s): CXRP - CHEST [facility]ABLE [facility] ORDER NUMBER(s): [id number], ACCESSION NUMBER(s): [id number] XY CHEST PORTABLE, H[facility]ORY[facility] COMPARISON: XY CHEST PORTABLE on DOS: 08/18/24, CHEST XRAY 1 VIEW on DOS: 03/04/21 XY CHEST PORTABLE on DOS: 08/18/24, CHEST XRAY 1 VIEW on DOS: 03/04/21 TECHNICAL DATA: 1 view of the chest was obtained. FINDINGS: Lines and tubes: None Cardiomediastinal silhouette: Enlarged Pulmonary vasculature: prominent Lung expansion: normal Lung airspace: normal Lung interstitium: normal Pleura: normal Pneumothorax: no Bones: Unremarkable Other: no IMPRESSION: Cardiomegaly with pulmonary vascular congestion. ATED BY: FLORENCIO MARIN MD DICTATED DATE/TIME: 01/09/25 1020 SIGNED BY: FLORENCIO MARIN MD SIGNED DATE/TIME: 01/09/25 1020 CC: Time of 1ST Reevaluation: 13:01 Reevaluation 1ST: Improved Patient Education/Counseling: Diagnosis, Treatment Family Education/Counseling: No Family Present Sepsis Sepsis Reasesment Focused Exam Orders: Laboratory Tests 01/09/25 10:07: Lactic Acid Level 8.6 01/09/25 12:11: Lactic Acid Level 7.1 Departure 1 Departure Time of Disposition: 12:59 (Patient is unstable for transfer. [place] authorization to admit at [facility] [id number] with DKA, hyperkalemia, acute renal failure. We will cover patient with fluids insulin a dmit patient for further workup and expert consultation) Impression: Primary Impression: DKA, type 2, not at goal Additional Impressions: Metabolic encephalopathy Hyperkalemia Disposition: ADMITTED INPATIENT Admit to: ICU Condition: Critical Critical Care Note Critical Care Time?: Yes Critical care comment: Hyperkalemia in DKA Authorized and Performed by: Yahir Lopez MD Total critical care time: Approximately 114 minutes Due to a high probability of clinically significant, life threatening deterioration, the patient required my highest level of preparedness to intervene emergently and I personally spent this critical care time directly and personally managing the patient. This critical care time included obtaining a history; examining the patient; pulse oximetry; ordering and review of studies; arranging urgent treatment with development of a management plan; evaluation of patient's response to treatment; frequent reassessment; and, discussions with other providers. This critical care time was performed to assess and manage the high probability of imminent, life-threatening deterioration that could result in multi-organ failure. It was exclusive of separately billable procedures and treating other patients and teaching time. Please see my other sections and the rest of the note for further information on patient assessment and treatment. Stability Stability form required: No Heart Score Heart Score: Heart Score Response (Comments) Value History Moderate Suspicious 1 EKG Repolarization Disturb 1 Age 45-64 1 Risk Factors 1 or 2 risk factors 1 Troponin Normal limit 0 Total 4 I personally scribed for YAHIR LOPEZ MD ([facility] on 01/09/25 at 09:53. Electronically submitted by Lori Munson ([email or web address]). I personally scribed for YAHIR LOPEZ MD ([facility]) on 01/09/25 at 10:08. Electronically submitted by Lori Munson ([email or web address]). I personally scribed for YAHIR LOPEZ MD ([facility]) on 01/09/25 at 10:25. Electronically submitted by Lori Munson ([facility]). I personally scribed for YAHIR LOPEZ MD ([facility]) on 01/09/25 at 12:21. Electronically submitted by Lori Munson ([facility]). I personally scribed for YAHRI LOPEZ MD ([facility]) on 01/09/25 at 12:44. Electronically submitted by Lori Munson ([facility]). I personally scribed for YAHIR LOPEZ MD ([facility]) on 01/09/25 at 12:48. Electronically submitted by Lori Munson ([facility]). YAHIR LOPEZ MD Jan 09, 2025 09:53
--- NOTE | 2025-01-09 10:08 | ECG ---
[facility] Test Date: 2025-01-09 Test Time: 09:42:40 Pat Name: SHELBY MCCOLLUM Department: ED Room: 0261 Gender: M Manager Sustainability: BETHANY : 1970 Requested By: YAHIR LOPEZ Order Number: [id number] Reading MD: Aniket Hall Measurements Intervals [place] Rate: 128 P: 0 WI: 0 QRS: -97 QRSD: 250 T: 104 QT: 393 QTc: 574 Interpretive Statements wide complex tachycardia Ventricular premature complex Right bundle branch block Left ventricular hypertrophy Artifact in lead(s) I,aVR and baseline wander in lead(s) II,III,aVL,aVF,V1,V2,V3,V4,V5,V6 Electronically Signed On 01-10-2025 16:48:57 PDT by Aniket Hall Please click the below link to view image of tracing.
--- NOTE | 2025-01-09 10:22 | DVH ---
XY CHEST PORTABLE, HISTORY: ams COMPARISON: XY CHEST PORTABLE on DOS: 08/18/24, CHEST XRAY 1 VIEW on DOS: 03/04/21 XY CHEST PORTABLE on DOS: 08/18/24, CHEST XRAY 1 VIEW on DOS: 03/04/21 TECHNICAL DATA: 1 view of the chest was obtained. FINDINGS: Lines and tubes: None Cardiomediastinal silhouette: Enlarged Pulmonary vasculature: prominent Lung expansion: normal Lung airspace: normal Lung interstitium: normal Pleura: normal Pneumothorax: no Bones: Unremarkable Other: no IMPRESSION: Cardiomegaly with pulmonary vascular congestion.
[2025-01-09 10:42] LABS: Albumin 3.5 g/dL (3.2-4.8); Anion Gap 17.00001 (5-15); BUN/Creatinine Ratio 14.2 (10.0-20.0); Bilirubin, Total 1.1 mg/dL (0.2-1.0); Calcium 8.9 mg/dL (8.7-10.4); Chloride 100 mmol/L (98-107)
[2025-01-09 10:48] LABS: Sodium 127 mmol/L (136-145)
[2025-01-09 10:53] LABS: Aspartate Aminotransferase 1941 U/L (<34); Carbon Dioxide < 10 mmol/L (20-31); Glucose 361 mg/dL (74-106); Potassium 7.8 mmol/L (3.5-5.1)
[2025-01-09 10:54] LABS: Alanine Aminotransferase 763 U/L (7-40); Alkaline Phosphatase 116 U/L (46-116); Blood Alcohol < 3.0 mg/dL (<10); Blood Urea Nitrogen 35 mg/dL (9-23)
[2025-01-09 10:55] LABS: Lactic Acid w/Reflex 8.6 mmol/L (0.4-2.0)
[2025-01-09 11:12] LABS: Basophils # (auto) 0.1 10 ^3/uL (0-0.2); Basophils % (auto) 0.7 % (0.0-2.0); Eosinophils # (auto) 0 10 ^3/uL (0-0.8); Eosinophils % (auto) 0.1 % (0.0-7.0); Hematocrit 34.2 % (41.0-53.0); Hemoglobin 11.2 g/dL (13.5-17.5); Lymphocytes # (auto) 0.8 10 ^3/uL (0.4-5.4); Lymphocytes % (auto) 9.8 % (10.0-50.0); Mean Corpuscular Hemoglobin 30.1 pg (28.0-32.0); Mean Corpuscular Hgb Conc. 32.7 g/dL (32.0-36.0); Mean Corpuscular Volume 92.2 fL (80.0-100.0); Monocytes # (auto) 0.5 10 ^3/uL (0-1.3); Monocytes % (auto) 6.4 % (0.0-12.0); Neutrophils # (auto) 6.5 10 ^3/uL (1.6-8.6); Platelet Count (auto) 170 10^3/uL (140-450); Red Blood Cells 3.71 10^6/uL (4.5-5.90); Red Cell Distribution Width 14.7 % (11.8-14.3); White Blood Cell 7.9 10^3/uL (4.4-10.8)
[2025-01-09] MEDS ORDERED: DEXTROSE (50%) 50ML SYRG IV PRN (11:15)
[2025-01-09] MEDS: SODIUM BICARB 8.4% 50Meq/50ml SYR Vial IV ONE ×2 (11:44→14:02)
[2025-01-09] MEDS: INSULIN DRIP 100 UNIT/100ML 100 ML IV SCH (11:44)
[2025-01-09] MEDS: INSULIN LANTUS (GLARGINE) 1 /0.01ml (100units/ml) SC ONE (11:59)
[2025-01-09] MEDS: ACCU-CHEK COMFORT CURVE STRIP VI SCH (12:00)
[2025-01-09] MEDS: CALCIUM GLUC 1,000mg/50ml-NS 50 ML IV STA (12:00)
[2025-01-09] MEDS: SODIUM CHLORIDE 0.9% 1,000 ML IV SCH ×2 (12:01→15:34)
[2025-01-09 12:06] LABS: Magnesium 2.2 mg/dL (1.6-2.6)
--- NOTE | 2025-01-09 12:13 | ECG ---
[facility] Test Date: 2025-01-09 Test Time: 09:55:46 Pat Name: SHELBY MCCOLLUM Department: ED Room: 0261 Gender: M Cnp: BETHANY : 1970 Requested By: YAHIR LOPEZ Order Number: [id number] Reading MD: Aniket Hall Measurements Intervals [place] Rate: 76 P: 0 CT: 133 QRS: 111 QRSD: 147 T: 36 QT: 462 QTc: 520 Interpretive Statements Atrial fibrillation with controlled ventricular response IVCD, consider atypical RBBB Inferior infarct, acute Probable anteroseptal infarct, old Electronically Signed On 01-10-2025 17:28:40 PDT by Aniket Hall Please click the below link to view image of tracing.
--- NOTE | 2025-01-09 12:13 | ECG ---
[facility] Test Date: 2025-01-09 Test Time: 10:57:38 Pat Name: SHELBY MCCOLLUM Department: ED Room: 0261 Gender: M Hide Or Skin Buffer: BETHANY : 1970 Requested By: YAHIR LOPEZ Order Number: [id number] Reading MD: Aniket Hall Measurements Intervals [place] Rate: 78 P: 0 OR: 0 QRS: 228 QRSD: 211 T: 45 QT: 545 QTc: 621 Interpretive Statements Atrial fibrillation Nonspecific intraventricular conduction delay Minimal ST depression Electronically Signed On 01-10-2025 17:29:22 PDT by Aniket Hall Please click the below link to view image of tracing.
[2025-01-09] MEDS: NOREPINEPHRINE 8 MG/250ML KIT 250 ML IV SCH (12:15)
[2025-01-09 12:27] LABS: Anion Gap 22.00001 (5-15)
[2025-01-09 12:28] LABS: Chloride 97 mmol/L (98-107); Sodium 129 mmol/L (136-145)
[2025-01-09 12:30] LABS: Carbon Dioxide < 10 mmol/L (20-31); Potassium 7.9 mmol/L (3.5-5.1)
[2025-01-09 12:32] LABS: BUN/Creatinine Ratio 15.8 (10.0-20.0)
[2025-01-09 12:36] LABS: Blood Urea Nitrogen 42 mg/dL (9-23)
[2025-01-09 12:37] LABS: Glucose 428 mg/dL (74-106)
[2025-01-09] MEDS: NOREPINEPHRINE 8 MG/250ML KIT 250 ML IV ONE (12:54)
--- NOTE | 2025-01-09 12:55 | ECG ---
[facility] Test Date: 2025-01-09 Test Time: 12:53:54 Pat Name: SHELBY MCCOLLUM Department: ED Room: 0261 Gender: M Piping Blocker: BETHANY : 1970 Requested By: YAHIR LOPEZ Order Number: [id number] Reading MD: Aniket Hall Measurements Intervals [place] Rate: 83 P: 0 CA: 48 QRS: 89 QRSD: 84 T: 24 QT: 385 QTc: 453 Interpretive Statements Sinus rhythm Short CA interval Borderline low voltage, extremity leads Minimal ST depression, anterolateral leads Electronically Signed On 01-10-2025 17:29:52 PDT by Aniket Hall Please click the below link to view image of tracing.
[2025-01-09] MEDS: AMIODARONE 360mg/200mL PREMIX 200 ML IV ONE (12:59)
[2025-01-09] MEDS: AMIODARONE BOLUS KIT 100 ML IV ONE (12:59)
[2025-01-09 13:04] LABS: Urine Bacteria None Seen /hpf (None Seen)
[2025-01-09 13:10] LABS: Urine Blood TRACE /uL (Negative); Urine Clarity Clear (Clear); Urine Color Light-Yellow (Yellow); Urine Hyaline Cast FEW /lpf (0 - 2); Urine Protein, UAD 1+ (Negative); Urine Specific Gravity 1.012 (1.001-1.035); Urine Sperm PRESENT /hpf (None Seen); Urine Squamous Epithelial Cell FEW /hpf (<5); Urine Urobilinogen Normal (Negative); Urine WBC 1 /HPF (0-3)
[2025-01-09 13:19] LABS: Amphetamine Screen, Urine Neg (NEGATIVE)
[2025-01-09 13:20] LABS: Barbiturate Scree,Urine Neg (NEGATIVE); Benzodiazephine Screen, Urine Neg (NEGATIVE); Cannabinoid Screen, Urine Neg (NEGATIVE); Cocaine Screen, Urine Neg (NEGATIVE); Opiate Scree,Urine Neg (NEGATIVE); Phencyclidine Screen, Urine Neg (NEGATIVE)
[2025-01-09] MEDS: LACTATED RINGER'S 2,000 ML IV ONE (14:02)
[2025-01-09] MEDS ORDERED: ATOR40TA52 PO (14:55)
[2025-01-09] MEDS ORDERED: METO25CA (14:55)
[2025-01-09] MEDS ORDERED: GABA-1250 PO (14:55)
[2025-01-09] MEDS ORDERED: ONDANSETRON HCL 4 MG/2 ML VIAL IV PRN (15:00)
[2025-01-09] MEDS ORDERED: NITROGLYCERIN 0.4 MG SL TAB SL PRN (15:00)
[2025-01-09] MEDS ORDERED: ACETAMINOPHEN 325 MG TAB PO PRN (15:00)
[2025-01-09] MEDS ORDERED: MORPHINE SULFATE INJ 2 MG/ml SYRG IV PRN (15:00)
[2025-01-09] MEDS ORDERED: SODIUM CHLORIDE 0.9% 1,000 ML IV SCH ×2 (15:15→17:15)
--- NOTE | 2025-01-09 15:23 | DVHHP2 ---
History of Present Illness Reason for Visit: Generalized weakness History of Present Illness Adriano Bass is a 54-year-old male with past medical history of diabetes, mitral valve prolapse status post mitral valve replacement 15 years ago at [facility], paroxysmal AFib, and DKA presents to the ED with generalized weakness, nausea, vomiting, and diarrhea x1 day. Patient states that he has an insulin pump and changes it every 3 days. He also endorses that he does not use home oxygen but upon evaluation patient is on 3 L nasal cannula screen. Patient denies any chest pain, shortness of breath, fever, chills, abdominal pain, recent trauma or injury, recent sick contacts, recent travels, recent ingestion of spoiled food, or urinary symptoms. Patient also reports that he is compliant with his medications. Patient states that he drank 4 beers last night and quit smoking recently. He also states that he has no issues with his kidneys. Cardiovascular: AFIB Endocrine: Diabetes, Other (DKA) Past Medical History Mitral valve prolapse Past Surgical History: Other (Mitral valve replacement) Family History: None Smoke: Quit ALCOHOL: occassional Drugs: None Lives: with Family Domestic Violence: Neg Review of Systems Constitutional: Yes: Weakness Gastrointestinal: Nausea, Vomiting, Diarrhea Allergies: Coded Allergies: NO KNOWN ALLERGIES (Unverified , 10/31/14) Medications Current Medications Medications Dose Ordered Sig/Staci Route Start Time Stop Time Status Last Admin Dose Admin Sodium Chloride 1,000 ml @ 500 mls/hr Q2H IV 01/09/25 11:15 01/09/25 15:14 01/09/25 14:02 500 MLS/HR Sodium Chloride 1,000 ml @ 250 mls/hr Q4H IV 01/09/25 15:15 01/09/25 17:14 Sodium Chloride 1,000 ml @ 150 mls/hr Q6H40M IV 01/09/25 17:15 Insulin Human (Reg)/Sodium Chloride 100 ml @ 0.5 mls/hr Q24H IV 01/09/25 11:15 01/09/25 11:44 6 MLS/HR Dextrose 50 ml UD PRN IV 01/09/25 11:15 Diagnostic Test (Pha) 1 strip Q90MIN 01/09/25 12:00 01/09/25 13:54 1 STRIP Insulin Glargine 15 units DAILY SC 01/10/25 10:00 Norepinephrine Bitartrate 250 ml @ 3.75 mls/hr Q24H IV 01/09/25 12:15 01/09/25 12:15 3.75 MLS/HR Sodium Chloride 1,000 ml @ 120 mls/hr Q8H20M IV 01/09/25 15:00 UNV Ondansetron HCl 4 mg Q4HP PRN IV 01/09/25 15:00 UNV Acetaminophen 650 mg Q6HP PRN PO 01/09/25 15:00 UNV Nitroglycerin 0.4 mg Q5MINP PRN SL 01/09/25 15:00 UNV Morphine Sulfate 2 mg Q30M PRN IV 01/09/25 15:00 UNV Exam Vital Signs Vital Signs Date Time Temp Pulse Resp B/P (MAP) Pulse Ox O2 Delivery O2 Flow Rate FiO2 01/09/25 13:30 183/98 01/09/25 12:53 83 01/09/25 09:36 98.5 24 97 98.5 01/09/25 09:36 Nasal Cannula* 2 28 General Appearance: Alert, Oriented X3, Cooperative, No acute distress HEENT: Atraumatic, PERRLA, EOMI Respiratory: Normal air movement Cardiovascular: Normal S1, Normal S2 Abdominal: Soft Extremities: No clubbing, No cyanosis, Normal pulses Skin: No significant lesion Neuro: Normal speech, Normal tone, Sensation intact Psych/Mental Status: Mental status NL, Mood NL Labs/Xrays Labs Test 01/09/25 13:51 01/09/25 12:58 01/09/25 12:11 01/09/25 11:00 Range/Units POC Glucose 335 H 70-106 mg/dl Urine Color Light-yellow Yellow Urine Clarity Clear Clear Urine pH 5.0 5.0-9.0 Urine Specific [place] 1.012 1.001-1.035 Urine Protein 1+ H Negative Urine Ketones Negative Negative Urine Blood Trace H Negative /uL Urine Nitrite Negative Negative Urine Bilirubin Negative Negative Urine Urobilinogen Normal Negative mg/dL Urine Leukocyte Esterase Negative Negative /uL Urine RBC 2 0 - 3 /hpf Urine Microscopic WBC 1 0-3 /HPF Urine Squamous Epithelial Cells Few <5 /hpf Urine Bacteria None seen None Seen /hpf Urine Hyaline Casts Few 0 - 2 /lpf Urine Sperm Present None Seen /hpf Urine Glucose 3+ H Normal mg/dL Urine Opiates Screen Neg NEGATIVE Urine Fentanyl Screen Neg NEGATIVE Urine Barbiturates Screen Neg NEGATIVE Urine Phencyclidine Screen Neg NEGATIVE Urine Amphetamines Screen Neg NEGATIVE Urine Benzodiazepines Screen Neg NEGATIVE Urine Cocaine Screen Neg NEGATIVE Urine Cannabinoids Screen Neg NEGATIVE Sodium Level 129 L 136-145 mmol/L Potassium Level 7.9 *H 3.5-5.1 mmol/L Chloride Level 97 L 98-107 mmol/L Carbon Dioxide Level < 10 *L 20-31 mmol/L Anion Gap 22.22381 H 5-15 Blood Urea Nitrogen 42 H 9-23 mg/dL Creatinine 2.65 H 0.700-1.30 mg/dL Glomerular Filtration Rate Calc 28 >90 mL/min BUN/Creatinine Ratio 15.8 10.0-20.0 Serum Glucose 428 *H 74-106 mg/dL Lactic Acid Level 7.1 *H 0.4-2.0 mmol/L Calcium Level 9.0 8.7-10.4 mg/dL White Blood Count 7.9 4.4-10.8 10^3/uL Red Blood Count 3.71 L 4.5-5.90 10^6/uL Hemoglobin 11.2 L 13.5-17.5 g/dL Hematocrit 34.2 L 41.0-53.0 % Mean Corpuscular Volume 92.2 80.0-100.0 fL Mean Corpuscular Hemoglobin 30.1 28.0-32.0 pg Mean Corpuscular Hemoglobin Concent 32.7 32.0-36.0 g/dL Red Cell Distribution Width 14.7 H 11.8-14.3 % Platelet Count 170 140-450 10^3/uL Mean Platelet Volume 9.7 6.9-10.8 fL Neutrophils (%) (Auto) 83.0 H 37.0-80.0 % Lymphocytes (%) (Auto) 9.8 L 10.0-50.0 % Monocytes (%) (Auto) 6.4 0.0-12.0 % Eosinophils (%) (Auto) 0.1 0.0-7.0 % Basophils (%) (Auto) 0.7 0.0-2.0 % Neutrophils # (Auto) 6.5 1.6-8.6 10 ^3/uL Lymphocytes # (Auto) 0.8 0.4-5.4 10 ^3/uL Monocytes # (Auto) 0.5 0-1.3 10 ^3/uL Eosinophils # (Auto) 0 0-0.8 10 ^3/uL Basophils # (Auto) 0.1 0-0.2 10 ^3/uL Nucleated Red Blood Cells 0.0 % Test 01/09/25 10:07 01/09/25 10:01 Range/Units Phosphorus Level 6.0 H 2.4-5.1 mg/dL Magnesium Level 2.2 1.6-2.6 mg/dL Total Bilirubin 1.1 H 0.2-1.0 mg/dL Aspartate Amino Transferase (AST) 1941 H <34 U/L Alanine Aminotransferase (ALT) 763 H 7-40 U/L Alkaline Phosphatase 116 46-116 U/L Troponin I High Sensitivity 23 </=54 ng/L B-Type Natriuretic Peptide 302.39 0-100 pg/mL Total Protein 6.0 5.7-8.2 g/dL Albumin 3.5 3.2-4.8 g/dL Beta-Hydroxybutyric Acid 2.767 H < 0.4 mmol/L Plasma/Serum Blood Alcohol < 3.0 <10 mg/dL Blood Gas Specimen Type Venous Blood Gas Sample Site Vbg - n/a Blood Gas Patient Temperature 37.0 Arterial Blood Date Drawn [place] Test N/a Venous Blood pH 7.095 *L 7.320-7.430 Venous Blood pCO2 at Patient Temp 26.7 L 38.0-54.0 mmHg Venous Blood pO2 at Patient Temp 50.9 H 23.0-48.0 mmHg Venous Blood HCO3 8.0 L 22.0-29.0 mmol/L Venous Blood Base Excess -20.3 L -2.0-3.0 mmol/L Blood Gas Modality Room air FiO2 % 21.0 Blood Gas Critical Value Read Back Yes Blood Gas Notified Whom heron Vazquez Blood Gas Notified Time [id number] Blood Gas Notified By Family Support Specialist alex melgar XY CHEST PORTABLE, HISTORY: ams COMPARISON: XY CHEST PORTABLE on DOS: 08/18/24, CHEST XRAY 1 VIEW on DOS: 03/04/21 XY CHEST PORTABLE on DOS: 08/18/24, CHEST XRAY 1 VIEW on DOS: 03/04/21 TECHNICAL DATA: 1 view of the chest was obtained. FINDINGS: Lines and tubes: None Cardiomediastinal silhouette: Enlarged Pulmonary vasculature: prominent Lung expansion: normal Lung airspace: normal Lung interstitium: normal Pleura: normal Pneumothorax: no Bones: Unremarkable Other: no IMPRESSION: Cardiomegaly with pulmonary vascular congestion. Assessment/Plan Assessment/Plan Assessment DKA Anemia Hyperkalemia Hyponatremia Acute kidney injury Acute hypoxic respiratory failure Cardiomegaly with pulmonary vascular congestion with lactic acidosis probable pneumonia History of mitral valve prolapse status post mitral valve replacement 15 years ago at [facility] History of paroxysmal AFib Plan Admit to ICU Vasopressors to keep maps greater than 65 IV Abx - ceftriaxone Insulin drip NS given in ED Sodium bicarb given ED EKG Mag level Phos level Amnio given ED UDS VBG Blood cultures Lactic level noted Chest x-ray UA Beta hydroxy Blood alcohol BNP NPO IVF Home medications reconciled DVT prophylaxis-not indicated patient ambulating PUD prophylaxis-not indicated no history of GERD or GI bleed Discussed plan of care with patient and nurse Plan discussed with: Patient My Orders Orders - DARRELL COATS VALUATION MANAGER Procedure Category Date Status Time Admit ADMIT 01/09/25 Transmitted 14:51 Allergies RAY 01/09/25 In Process 14:51 Code Status CODE 01/09/25 Transmitted 14:51 Sodium Chloride 0.9% PHA 01/09/25 Logged 15:00 Ondansetron Hcl PHA 01/09/25 Logged (Zofran) 15:00 Complete Blood Count LAB 01/10/25 Verified 04:00 Comprehensive LAB 01/10/25 Verified Metabolic Panel 04:00 Npo (Nothing By DIET 01/09/25 Transmitted Mouth) Diet Dinner Acetaminophen Tablet PHA 01/09/25 Logged (Tylenol Tablet) 15:00 Nitroglycerin PHA 01/09/25 Logged Sublingual (Ntrostat 15:00 Morphine Sulfate PHA 01/09/25 Logged Injection 15:00 Stat Ekg For Chest RAY 01/09/25 In Process Pain 14:51 Notify Of Changes RAY 01/09/25 In Process From Base 14:51 Senior Electrical Controls Engineer For RAY 01/09/25 In Process 24 Hours 14:51 Emergency Dysrhythmia RAY 01/09/25 In Process Protocol 14:51 Rhythm Strips Once RAY 01/09/25 In Process Every Shift 14:51 Oxygen By Nasal RT 01/09/25 Transmitted Cannula 14:51 Potassium LAB 01/09/25 Logged 14:51 Gabapentin Capsule PHA 01/09/25 Verified (Neurontin Capsule) 22:00 (Nf) Atorvastatin PHA 01/10/25 Verified Calcium 10:00 Metoprolol Xl PHA 01/09/25 Verified Succinate (Toprol Xl) 15:00 Date of Service: Jan 09, 2025 Billing Provider: DARRELL COATS Common Visit Codes: [id number] INP/OBS CARE (HIGH) DARRELL COATS Jan 09, 2025 15:23
[2025-01-09] MEDS: METOPROLOL SUCCINATE XL 50 MG TAB PO SCH (15:25)
[2025-01-09] MEDS: cefTRIAXone 1GM/50ML D5W 50 ML IV SCH (15:34)
[2025-01-09] MEDS ORDERED: AMIODARONE 360mg/200mL PREMIX 200 ML IV SCH (16:15)
[2025-01-09 17:28] LABS: Chloride 103 mmol/L (98-107); Potassium 4.8 mmol/L (3.5-5.1); Sodium 139 mmol/L (136-145)
[2025-01-09 17:29] LABS: Anion Gap 12 (5-15); Calcium 9.3 mg/dL (8.7-10.4); Carbon Dioxide 24 mmol/L (20-31)
[2025-01-09 17:34] LABS: BUN/Creatinine Ratio 17.2 (10.0-20.0)
[2025-01-09 17:35] LABS: Blood Urea Nitrogen 42 mg/dL (9-23); Glucose 175 mg/dL (74-106)
[2025-01-09] MEDS: D5W 5% 1,000 ML IV SCH (21:45)
[2025-01-09 23:22] LABS: Chloride 102 mmol/L (98-107); Sodium 137 mmol/L (136-145)
[2025-01-09 23:23] LABS: Anion Gap 10 (5-15); Carbon Dioxide 25 mmol/L (20-31)
[2025-01-09 23:26] LABS: Calcium 8.3 mg/dL (8.7-10.4); Potassium 5.4 mmol/L (3.5-5.1)
[2025-01-09 23:29] LABS: Blood Urea Nitrogen 42 mg/dL (9-23); Glucose 179 mg/dL (74-106)
[2025-01-10] VITALS (33 sets, daily range): BP systolic 99–160; BP diastolic 58–92; PULSE 53–67; RESP 7–18; TEMP 98.2–98.6; O2SAT 85–99
[2025-01-10] MEDS: GABAPENTIN 300 MG CAP PO SCH (00:12)
[2025-01-10] MEDS: ATORVASTATIN 20 MG TAB PO SCH (00:12)
[2025-01-10] MEDS: InsuLIN REG 1unit/0.01ml Soln (100units/ml) SC SCH (00:14)
[2025-01-10 05:20] LABS: Basophils # (auto) 0.1 10 ^3/uL (0-0.2); Basophils % (auto) 0.8 % (0.0-2.0); Eosinophils # (auto) 0.1 10 ^3/uL (0-0.8); Eosinophils % (auto) 0.6 % (0.0-7.0); Hematocrit 30.4 % (41.0-53.0); Hemoglobin 10.4 g/dL (13.5-17.5); Lymphocytes # (auto) 1.6 10 ^3/uL (0.4-5.4); Lymphocytes % (auto) 19.7 % (10.0-50.0); Mean Corpuscular Hemoglobin 30.4 pg (28.0-32.0); Mean Corpuscular Hgb Conc. 34.3 g/dL (32.0-36.0); Mean Corpuscular Volume 88.5 fL (80.0-100.0); Monocytes # (auto) 0.9 10 ^3/uL (0-1.3); Monocytes % (auto) 11.4 % (0.0-12.0); Neutrophils # (auto) 5.6 10 ^3/uL (1.6-8.6); Neutrophils % (auto) 67.5 % (37.0-80.0); Nucleated Red Blood Cells % 0.2 %; Platelet Count (auto) 162 10^3/uL (140-450); Red Blood Cells 3.43 10^6/uL (4.5-5.90); Red Cell Distribution Width 14.1 % (11.8-14.3); White Blood Cell 8.3 10^3/uL (4.4-10.8)
[2025-01-10 05:36] LABS: Alanine Aminotransferase 510 U/L (7-40); Albumin 3.1 g/dL (3.2-4.8); Alkaline Phosphatase 90 U/L (46-116); Anion Gap 9 (5-15); Aspartate Aminotransferase 605 U/L (<34); BUN/Creatinine Ratio 17.9 (10.0-20.0); Bilirubin, Total 0.6 mg/dL (0.2-1.0); Blood Urea Nitrogen 39 mg/dL (9-23); Calcium 8.9 mg/dL (8.7-10.4); Carbon Dioxide 26 mmol/L (20-31); Chloride 105 mmol/L (98-107); Glucose 102 mg/dL (74-106); Potassium 4.6 mmol/L (3.5-5.1); Sodium 140 mmol/L (136-145); Total Protein 5.4 g/dL (5.7-8.2)
[2025-01-10] MEDS: ACCU-CHEK COMFORT CURVE STRIP VI SCH ×2 (08:50→17:39)
[2025-01-10] MEDS: INSULIN LANTUS (GLARGINE) 1 /0.01ml (100units/ml) SC SCH (10:26)
--- NOTE | 2025-01-10 12:00 | DVHPN2 ---
Assessment/Plan Assessment/Plan ICU note 54 M with t1DM (recently started on insulin pump), MVP s/p repair 2009, pafib, not on AC admitted for DKA. was hypotensive and given fluid and started on insulin. gap closed. was on basal bolus insulin prior to transition to pump. Physical exam aox4 PERRLA MMM s1 s2 rrr mild crackles abd soft nontender no LE edema Labs ekg imaging reviewed Assessment and plan DKA type 1 DM MVP s/p repair normocytic anemia ALE likely hemodynamic on CKD transaminitis, shock liver? lactic acidosis acute hypoxic RF ex smoker pafib restart basal bolus ISS dc iv fluid Lasix 20mg IV once I/O, dc marmolejo empiric abx coverage trend h/h, lft, cr echo maintain MAP >65, levo if needed will discuss AC diet cc dvt ppx lovenox gi ppx no indication full code condition critical critical care time 60 minutes Plan discussed with: Patient My Orders Orders - ALY TRUONG MD Procedure Category Date Status Time Insulin Lispro PHA 01/10/25 In Process (Human) (Humalog) 17:00 Insulin Lantus PHA 01/11/25 In Process (Glargine) (Lantus) 10:00 Insulin Lispro PHA 01/10/25 In Process (Human) (Humalog) 17:00 D/C Marmolejo RAY 01/10/25 In Process 11:45 Echo 2d Mode Cardiac US 01/10/25 Logged DOP 11:45 Lactic Acid W/ Reflex LAB 01/11/25 Verified Order 04:00 Magnesium LAB 01/11/25 Verified 04:00 Phosphorus LAB 01/11/25 Verified 04:00 Complete Blood Count LAB 01/11/25 Verified 04:00 Comprehensive LAB 01/11/25 Verified Metabolic Panel 04:00 Glucose Blood PHA 01/10/25 In Process (Accu-Chek Comfort 17:00 Urine LAB 01/10/25 Logged Protein/Creatinine Urine Sodium LAB 01/10/25 Logged 11:51 PTPTT LAB 01/10/25 Logged 11:52 Date of Service: Jan 10, 2025 Billing Provider: ALY TRUONG MD Common Visit Codes: [id number] CARE 30-74 MIN ALY TRUONG MD Jan 10, 2025 12:00
[2025-01-10] MEDS: FUROSEMIDE 20 MG/2 ML VIAL IV ONE (12:31)
[2025-01-10] MEDS: INSULIN LISPRO (HUMAN) 100 UNITS/ML ML SC ONE (12:52)
[2025-01-10 13:15] LABS: INR 1.17 (0.9-1.15); Partial Thromboplastin Time 24.9 SEC (24.5-34.5); Prothrombin Time 12.2 sec (9.3-11.8)
--- NOTE | 2025-01-10 16:01 | DVHSR ---
APPROVED REPORT EXAM: Two-dimensional and M-mode echocardiogram with Doppler and color Doppler. Blood Pressure: 133/80 mmHg INDICATION LVEF Hx of MVP w repair Surgery/Intervention Valve Replacement: Bioprosthetic Type: MVDate: 2009 RISK FACTORS Height: 5'9", Weight: 197 DIMENSIONS LVDd4.3 (3.8-5.7cm)LA (2D)5.8 (1.9-4.0cm)Aortic Root4.2 (2.0-3.7cm) LVDs2.9 (2.5-4.0cm)LA (MM) (1.9-4.0cm)Aortic Cusp Exc2.0 (1.5-2.0cm) EF (%) 60.0 (55-70%)Rt. Atrium5.3 (1.9-4.0cm)Asc. Aorta cm IVSd1.5 (0.7-1.1cm)RV (D)5.7 (1.8-2.4cm) PWd1.5 (0.7-1.1cm) Mitral Valve MitralMitral Stenosis E wave1.75m/sMV Mean GR.5mmHg A wave0.49m/sMV Peak GR.18mmHg E/A ratio3.62D MVAcm2 DECEL [id number] 1/2 [id number] IVRTmsDop MVA1.88cm2 Aortic Valve Aortic ValveAortic Stenosis V10.88m/Javier Mean GR.2mmHg V20.90m/Javier Peak GR.3mmHg LVOT Diameter2.6 (1.8-2.4cm)Doppler AVA5.19cm2 Pulmonic Valve V20.67m/s Tricuspid Valve TR Velocity3.48m/s [id number] Conclusion Sinus rhythm. Left atrial enlargement of severe degree. Right atrial and right ventricular enlargement. Aortic ro ot enlargement. Concentric LVH. The aortic valve appears to be structurally normal. There is significant diminished excursion of the mitral valve. There appears to be a significant degree of mitral stenosis. Mild calcification with diminished excursion no anterior and posterior mitral leaflets as mentioned. The tricuspid and pulm onic or structurally normal. Left ventricular function appears to be preserved. EF is about 60% with normal right ventricular fun ction. There is moderate mitral insufficiency. There is aliasing across the mitral valve in ventricular ellie stole. This is indicative of mitral stenosis. Peak gradient of18 mmHg with a mean gradient of5 mmHg . Valve area calculated at 1.88 cm2. No pulmonic insufficiency. Mild tricuspid regurgitation. No pericardial effusion masses or vegetations discernible otherwise. Given the severity of mitral stenosis would consider clinical correlation and further workup for mitr al stenosis.
[2025-01-10] MEDS: INSULIN LISPRO (HUMAN) 100 UNITS/ML ML SC SCH ×2 (17:43)
[2025-01-10 18:53] LABS: Protein, Urine 17.5 mg/dL (1-14)
[2025-01-10 18:56] LABS: Creatinine, Urine 29.61 mg/dL (30.0-125.0); Urine Protein/Creatinine Ratio 0.59
[2025-01-11] VITALS (23 sets, daily range): BP systolic 109–181; BP diastolic 57–105; PULSE 49–64; RESP 8–16; TEMP 97.6–98.8; O2SAT 87–99
[2025-01-11 05:19] LABS: Basophils # (auto) 0.1 10 ^3/uL (0-0.2); Eosinophils # (auto) 0.1 10 ^3/uL (0-0.8); Hematocrit 32.9 % (41.0-53.0); Hemoglobin 11.2 g/dL (13.5-17.5); Lymphocytes # (auto) 1.6 10 ^3/uL (0.4-5.4); Lymphocytes % (auto) 22.9 % (10.0-50.0); Mean Corpuscular Hemoglobin 30.6 pg (28.0-32.0); Mean Corpuscular Hgb Conc. 33.9 g/dL (32.0-36.0); Mean Corpuscular Volume 90.2 fL (80.0-100.0); Monocytes # (auto) 0.8 10 ^3/uL (0-1.3); Monocytes % (auto) 10.8 % (0.0-12.0); Neutrophils # (auto) 4.4 10 ^3/uL (1.6-8.6); Neutrophils % (auto) 63.3 % (37.0-80.0); Nucleated Red Blood Cells % 0.1 %; Platelet Count (auto) 156 10^3/uL (140-450); Red Blood Cells 3.65 10^6/uL (4.5-5.90); Red Cell Distribution Width 14.4 % (11.8-14.3)
[2025-01-11 05:30] LABS: Albumin 3.5 g/dL (3.2-4.8); Alkaline Phosphatase 88 U/L (46-116); Anion Gap 7 (5-15); Calcium 9.2 mg/dL (8.7-10.4); Carbon Dioxide 29 mmol/L (20-31); Chloride 106 mmol/L (98-107); Potassium 4.9 mmol/L (3.5-5.1); Sodium 142 mmol/L (136-145)
[2025-01-11 05:31] LABS: Alanine Aminotransferase 381 U/L (7-40); Aspartate Aminotransferase 236 U/L (<34); Bilirubin, Total 0.4 mg/dL (0.2-1.0); Blood Urea Nitrogen 30 mg/dL (9-23); Glucose 264 mg/dL (74-106); Phosphorus 3.5 mg/dL (2.4-5.1)
[2025-01-11 08:23] LABS: Lactic Acid w/Reflex 2.1 mmol/L (0.4-2.0)
--- NOTE | 2025-01-11 09:11 | DVHPN2 ---
Assessment/Plan Assessment/Plan ICU note 54 M with t1DM (recently started on insulin pump), MVP s/p repair 2009, pafib, not on AC admitted for DKA. was hypotensive and given fluid and started on insulin. gap closed. was on basal bolus insulin prior to transition to pump. seen today, mitral stenosis on ehco. card consult. Physical exam aox4 PERRLA MMM s1 s2 rrr mild crackles abd soft nontender no LE edema Labs ekg imaging reviewed Assessment and plan DKA type 1 DM MVP s/p repair normocytic anemia ALE likely hemodynamic on CKD transaminitis, shock liver? lactic acidosis acute hypoxic RF ex smoker pafib mitral stenosis restart basal bolus ISS dc iv fluid Lasix 20mg IV once keep net 0 I/O, dc marmolejo empiric abx coverage trend h/h, lft, cr echo maintain MAP >65, levo if needed will discuss AC transfer to [facility] stable for transfer diet cc dvt ppx lovenox gi ppx no indication full code condition critical critical care time 35 minutes Plan discussed with: Patient My Orders Orders - ALY TRUONG MD Procedure Category Date Status Time Insulin Lantus PHA 01/11/25 In Process (Glargine) (Lantus) 10:00 Insulin Lispro PHA 01/10/25 In Process (Human) (Humalog) 17:00 D/C Marmolejo RAY 01/10/25 In Process 11:45 Echo 2d Mode Cardiac US 01/10/25 Resulted DOP 11:45 Glucose Blood PHA 01/10/25 In Process (Accu-Chek Comfort 17:00 * Senior Game Designer CONS 01/11/25 Transmitted Consult Insulin Lispro PHA 01/11/25 Logged (Human) (Humalog) 11:30 Kidney US 01/11/25 Transmitted 09:05 Transfer Orders XFER 01/11/25 Verified 09:07 Date of Service: Jan 11, 2025 Billing Provider: ALY TRUONG MD Common Visit Codes: [id number] CARE 30-74 MIN ALY TRUONG MD Jan 11, 2025 09:10
--- NOTE | 2025-01-11 09:46 | DVH ---
US KIDNEY HISTORY: ckd COMPARISON: None TECHNIQUE: Transverse and longitudinal grayscale and color doppler images were obtained of the kidney s and bladder. FINDINGS: Right kidney: Size: 12.5 cm Cortical thickness: Normal Echogenicity: Normal Stones: None Masses: None Hydronephrosis: None Ureters: Not well visualized. Other: None Left kidney: Size: 12.1 cm Cortical thickness: Normal Echogenicity: Normal Stones: None Masses: None Hydronephrosis: None Ureters: Not well visualized. Other: None Bladder: Normal Other: Pleural effusion is noted. IMPRESSION: Unremarkable. renal ultrasound.
[2025-01-11] MEDS: INSULIN LANTUS (GLARGINE) 1 /0.01ml (100units/ml) SC SCH (09:53)
[2025-01-11] MEDS: INSULIN LISPRO (HUMAN) 100 UNITS/ML ML SC SCH (11:45)
--- NOTE | 2025-01-11 11:59 | MEDREC ---
[facility] Intervention Section I [facility] Intervention: Review courses of therapy (PLEASE CONSIDER D/C ANTIBIOTIC IN ABSENCE OF BACTERIAL INFECTION) RAIN LEONG PHARMACIST Jan 11, 2025 11:59
--- NOTE | 2025-01-11 18:10 | DVHINCON2 ---
RADHA SANTOS [facility] [birth year]: Date Seen: Jan 11, 2025 Referring Physician MD Jose L Reason for Consultation MVP status post repair, mitral stenosis, paroxysmal a-fib, no AC History of Present Illness This is a pleasant 54-year-old man who presented to the emergency room via EMS with a chief complaint of generalized weakness. The patient presented with generalized weakness associated with nausea, vomiting, and diarrhea with an associated blood glucose level of 326 mg/dL and BP of 70/45 mmHg. Patient underwent multiple 12 lead electrocardiograms revealing fluctuation in between atrial fibrillation/atrial flutter with rapid ventricular rate and a sinus rhythm. He has an extensive cardiac history and had seen his primary armored service technician at [facility] two weeks ago. Reports undergoing a recent event monitor where he was diagnosed with atrial fibrillation for which he was placed on Eliquis therapy BID and he is scheduled for an upcoming cardiac ablation on 02/04/2025. Significant medical history includes mitral valve prolapse status post mitral valve replacement on 2009 at [facility], paroxysmal atrial fibrillation on Eliquis therapy, insulin-dependent diabetes mellitus with insulin pump, dyslipidemia, and obesity. Of note, patient reports a mechanical mitral valve replacement nevertheless CXR reviewed which appears bioprosthetic. Patient was never placed on warfarin therapy and was recently Rx Eliquis given new onset a-fib. [facility]'s medical records revealed a LHC without catheter based intervention on 2020. Past Medical History Past medical history reviewed. No other significant than mentioned above. Past Surgical History Status post mitral valve replacement, 2009 Family History: Patient reports no known family medical history. Family History Family history reviewed. Social History Denies the use of illicit drugs or tobacco use. Admits to occasional alcohol use. Allergies: Coded Allergies: NO KNOWN ALLERGIES (Unverified , 10/31/14) Home Meds Active Scripts Apixaban Base (ELIQUIS) 5 Mg Tab, 5 MG PO BID for 30 Days, #60 TAB 1 Refill Prov:ALY TRUONG MD 01/12/25 Insulin Lispro (Insulin Lispro Kwikpen) 100 Unit/Ml Inj, 5 UNIT SC ACHS for 30 Days, #30 INJ 3 units premeal plus sliding scale (every 50 over 150) Prov:ALY TRUONG MD 01/12/25 Insulin Glargine (Lantus Solostar) 100 Unit/Ml Inj, 20 UNIT SC DAILY for 30 Days, #30 INJ Prov:ALY TRUONG MD 01/12/25 [Insulin Detemir] 100 UNITS/ML UNITS No Conflict Check, 30 UNITS SC QAM, #200 UNITS Prov:HIRAL ORELLANA MD 11/03/14 Reported Medications Metoprolol Succinate (Kapspargo Sprinkle) 25 Mg Cap 01/09/25 Gabapentin (Gabapentin) 300 Mg Cap, CAP PO 01/09/25 Atorvastatin Calcium (ATORVASTATIN CALCIUM) 40 Mg Tab, 1 TAB PO DAILY 01/09/25 Home Meds Home medications reviewed. Current Medications Current Medications Medications (Trade) Dose Ordered Sig/Staci Route PRN Reason Start Time Stop Time Status Last Admin Insulin Glargine (Lantus) 22 units DAILY@1000 SC 01/11/25 10:00 01/11/25 09:53 Insulin Human Lispro (HumaLOG) 5 units AC SC 01/11/25 11:30 01/11/25 11:45 Review of Systems Constitutional: Generalized weakness Ears, Nose, & Throat: No symptom reported Eyes: No symptom reported Neurological: No symptoms reported Pulmonary/Respiratory: No symptom reported Cardiovascular: No symptom reported Gastrointestinal: N/V Genitourinary: No symptom reported Musculoskeletal: No symptom reported Skin: No symptom reported Psychiatric: No symptom reported Endocrine: No symptom reported Hemotologic/Lymphatic: No symptom reported Vital Signs Vital Signs Date Time Temp Pulse Resp B/P (MAP) Pulse Ox O2 Delivery O2 Flow Rate FiO2 01/11/25 17:04 98.8 58 16 109/74 (86) 91 98.8 01/11/25 14:00 Room Air* 0 21 Physical Exam General Appearance: Cooperative. Well developed. Obese. In no acute distress Head Exam: Normal inspection Neck Exam: Normal inspection. Non-tender. Normal alignment Pulmonary/Respiratory: Chest non-tender. Clear bilateral breath sounds Cardiovascular/Chest: Regular rate and rhythm. S1, S2. Sinus rhythm. No murmurs. No JVD. Peripheral Pulses: 2+ Radial (R). 2+ Radial (L). 2+ Pedal (R). 2+ Pedal (L) Abdominal Exam: Normal bowel sounds. Soft. Nontender. No hepatospenomegaly. No masses Ankle Exam: Negative ankle edema Lower extremities: Negative lower extremity edema Neuro/Mental Status: A&O x4. Coherent Thoughts/Psych: Normal thought pattern. Appropriate mood and affect. Good judgement and insight Appearance: In no acute distress Skin Exam: Normal inspection. Normal color. Warm. Dry Labs/Diagnostic Data Labs Test 01/11/25 17:15 01/11/25 07:40 01/11/25 04:26 01/10/25 18:30 Range/Units POC Glucose 90 70-106 mg/dl Lactic Acid Level 2.1 *H 0.4-2.0 mmol/L White Blood Count 7.0 4.4-10.8 10^3/uL Red Blood Count 3.65 L 4.5-5.90 10^6/uL Hemoglobin 11.2 L 13.5-17.5 g/dL Hematocrit 32.9 L 41.0-53.0 % Mean Corpuscular Volume 90.2 80.0-100.0 fL Mean Corpuscular Hemoglobin 30.6 28.0-32.0 pg Mean Corpuscular Hemoglobin Concent 33.9 32.0-36.0 g/dL Red Cell Distribution Width 14.4 H 11.8-14.3 % Platelet Count 156 140-450 10^3/uL Mean Platelet Volume 9.9 6.9-10.8 fL Neutrophils (%) (Auto) 63.3 37.0-80.0 % Lymphocytes (%) (Auto) 22.9 10.0-50.0 % Monocytes (%) (Auto) 10.8 0.0-12.0 % Eosinophils (%) (Auto) 2.0 0.0-7.0 % Basophils (%) (Auto) 1.0 0.0-2.0 % Neutrophils # (Auto) 4.4 1.6-8.6 10 ^3/uL Lymphocytes # (Auto) 1.6 0.4-5.4 10 ^3/uL Monocytes # (Auto) 0.8 0-1.3 10 ^3/uL Eosinophils # (Auto) 0.1 0-0.8 10 ^3/uL Basophils # (Auto) 0.1 0-0.2 10 ^3/uL Nucleated Red Blood Cells 0.1 % Sodium Level 142 136-145 mmol/L Potassium Level 4.9 3.5-5.1 mmol/L Chloride Level 106 98-107 mmol/L Carbon Dioxide Level 29 20-31 mmol/L Anion Gap 7 5-15 Blood Urea Nitrogen 30 H 9-23 mg/dL Creatinine 2.00 H 0.700-1.30 mg/dL Glomerular Filtration Rate Calc 39 >90 mL/min BUN/Creatinine Ratio 15.0 10.0-20.0 Serum Glucose 264 #H 74-106 mg/dL Calcium Level 9.2 8.7-10.4 mg/dL Phosphorus Level 3.5 2.4-5.1 mg/dL Magnesium Level 2.0 1.6-2.6 mg/dL Total Bilirubin 0.4 0.2-1.0 mg/dL Aspartate Amino Transferase (AST) 236 H <34 U/L Alanine Aminotransferase (ALT) 381 H 7-40 U/L Alkaline Phosphatase 88 46-116 U/L Total Protein 6.0 5.7-8.2 g/dL Albumin 3.5 3.2-4.8 g/dL Urine Creatinine 29.61 L 30.0-125.0 mg/dL Urine Protein/Creatinine Ratio 0.59 Urine Sodium 86 40-220 mmol/L Urine Total Protein 17.5 H 1-14 mg/dL Test 01/10/25 12:45 01/09/25 12:58 01/09/25 10:07 01/09/25 10:01 Range/Units Prothrombin Time 12.2 H 9.3-11.8 sec Prothrombin Time INR 1.17 H 0.9-1.15 Activated Partial Thromboplast Time 24.9 24.5-34.5 SEC Urine Color Light-yellow Yellow Urine Clarity Clear Clear Urine pH 5.0 5.0-9.0 Urine Specific [place] 1.012 1.001-1.035 Urine Protein 1+ H Negative Urine Ketones Negative Negative Urine Blood Trace H Negative /uL Urine Nitrite Negative Negative Urine Bilirubin Negative Negative Urine Urobilinogen Normal Negative mg/dL Urine Leukocyte Esterase Negative Negative /uL Urine RBC 2 0 - 3 /hpf Urine Microscopic WBC 1 0-3 /HPF Urine Squamous Epithelial Cells Few <5 /hpf Urine Bacteria None seen None Seen /hpf Urine Hyaline Casts Few 0 - 2 /lpf Urine Sperm Present None Seen /hpf Urine Glucose 3+ H Normal mg/dL Urine Opiates Screen Neg NEGATIVE Urine Fentanyl Screen Neg NEGATIVE Urine Barbiturates Screen Neg NEGATIVE Urine Phencyclidine Screen Neg NEGATIVE Urine Amphetamines Screen Neg NEGATIVE Urine Benzodiazepines Screen Neg NEGATIVE Urine Cocaine Screen Neg NEGATIVE Urine Cannabinoids Screen Neg NEGATIVE Troponin I High Sensitivity 23 </=54 ng/L B-Type Natriuretic Peptide 302.39 0-100 pg/mL Beta-Hydroxybutyric Acid 2.767 H < 0.4 mmol/L Plasma/Serum Blood Alcohol < 3.0 <10 mg/dL Blood Gas Specimen Type Venous Blood Gas Sample Site Vbg - n/a Blood Gas Patient Temperature 37.0 Arterial Blood Date Drawn [id number] [place] Test N/a Venous Blood pH 7.095 *L 7.320-7.430 Venous Blood pCO2 at Patient Temp 26.7 L 38.0-54.0 mmHg Venous Blood pO2 at Patient Temp 50.9 H 23.0-48.0 mmHg Venous Blood HCO3 8.0 L 22.0-29.0 mmol/L Venous Blood Base Excess -20.3 L -2.0-3.0 mmol/L Blood Gas Modality Room air FiO2 % 21.0 Blood Gas Critical Value Read Back Yes Blood Gas Notified Whom heron Vazquez Blood Gas Notified Time [id number] Blood Gas Notified By Piercing Machine Operator alex melgar Microbiology Date/Time Source Procedure Growth Status 01/09/25 16:15 Nose MRSA Screen - Final Complete 01/09/25 10:07 Blood Blood Culture - Preliminary NO GROWTH AFTER 48 HOURS OF INCUBATION. Resulted Assessment Mitral valve prolapse status post mitral valve replacement Recently diagnosed paroxysmal atrial fibrillation, on Eliquis Diabetic ketoacidosis Insulin-dependent diabetes mellitus Dyslipidemia Obesity Plan/Recommendation (Dr. Fisher) Patient reports a history of mitral valve prolapse status post mechanical mitral valve replacement on 2009. CXR reviewed which appears to be bioprosthetic plus the patient was never placed on warfarin therapy and was recently Rx Eliquis by primary armored service technician given new onset a-fib. [facility] medical records revealed a LHC without catheter based intervention on 2020. Currently awaiting cardiac ablation scheduled for 02/04/2025. Recommendations are to resume DOAC therapy and continue follow-up with primary armored service technician at [facility] as scheduled. There is no further cardiac work-up indicated at this time. Kindly call with any questions or concerns. Thank you for allowing us to participate in this patient's care. This medical document was created using an electronic medical record system with voice recognition software and computerized dictation system. Although this document has been carefully reviewed, there might still be some phonetic and typographical errors. Occasional wrong-word or ``sound-alike substitutions may have occurred due to the inherent limitations of voice recognition software. These areas are purely typographical due to imperfections of the software programs and do not reflect any compromise in the patient's medical care. Please read the chart carefully and recognize, using context, where these substitutions have occurred. Plan discussed with: Patient, Other NYHA Physical activity limitations: NA Date of Service: Jan 11, 2025 Billing Provider: RADHA SANTOS Cardiology Common Codes: [id number] INP/OBS CARE (High) MYRON FISHER MD 01/12/25 1230: Family History: Patient reports no known family medical history. Allergies: Coded Allergies: NO KNOWN ALLERGIES (Unverified , 10/31/14) Home Meds Active Scripts Apixaban Base (ELIQUIS) 5 Mg Tab, 5 MG PO BID for 30 Days, #60 TAB 1 Refill Prov:ALY TRUONG MD 01/12/25 Insulin Lispro (Insulin Lispro Kwikpen) 100 Unit/Ml Inj, 5 UNIT SC ACHS for 30 Days, #30 INJ 3 units premeal plus sliding scale (every 50 over 150) Prov:ALY TRUONG MD 01/12/25 Insulin Glargine (Lantus Solostar) 100 Unit/Ml Inj, 20 UNIT SC DAILY for 30 Days, #30 INJ Prov:ALY TRUONG MD 01/12/25 [Insulin Detemir] 100 UNITS/ML UNITS No Conflict Check, 30 UNITS SC QAM, #200 UNITS Prov:HIRAL ORELLANA MD 11/03/14 Reported Medications Metoprolol Succinate (Kapspargo Sprinkle) 25 Mg Cap 01/09/25 Gabapentin (Gabapentin) 300 Mg Cap, CAP PO 01/09/25 Atorvastatin Calcium (ATORVASTATIN CALCIUM) 40 Mg Tab, 1 TAB PO DAILY 01/09/25 Plan/Recommendation I EXTENSIVELY REVIEWED HIS [facility] RECORDS NO MD MADE ANY NOTE OF MITRAL VALVE SURGERY PT WAS PUT ON ELIQUIS LAST YEAR FOR AFIB RESUME THIS OUTPT VIRGIL RADHA SANTOS Jan 11, 2025 18:10 MYRON FISHER MD Jan 12, 2025 12:30
[2025-01-11] MEDS: APIXABAN 5 MG TAB PO SCH (20:45)
[2025-01-12 01:00] VITALS: BP 149/91; PULSE 61; RESP 18; TEMP 98.9; O2SAT 90
[2025-01-12 05:00] VITALS: BP_SYST 107; BP_SYST 138; BP_DIAS 71; BP_DIAS 80; PULSE 59; PULSE 82; RESP 17; RESP 19; TEMP 97.9; TEMP 98.6; O2SAT 90; O2SAT 92
[2025-01-12 05:24] VITALS: O2SAT 94
[2025-01-12 06:17] LABS: Basophils # (auto) 0.1 10 ^3/uL (0-0.2); Eosinophils # (auto) 0.2 10 ^3/uL (0-0.8); Eosinophils % (auto) 2.9 % (0.0-7.0); Hematocrit 33.5 % (41.0-53.0); Hemoglobin 11.3 g/dL (13.5-17.5); Lymphocytes # (auto) 1.5 10 ^3/uL (0.4-5.4); Lymphocytes % (auto) 24.1 % (10.0-50.0); Mean Corpuscular Hemoglobin 30.7 pg (28.0-32.0); Mean Corpuscular Hgb Conc. 33.8 g/dL (32.0-36.0); Monocytes # (auto) 0.8 10 ^3/uL (0-1.3); Monocytes % (auto) 12.1 % (0.0-12.0); Neutrophils # (auto) 3.8 10 ^3/uL (1.6-8.6); Neutrophils % (auto) 59.9 % (37.0-80.0); Platelet Count (auto) 166 10^3/uL (140-450); Red Blood Cells 3.68 10^6/uL (4.5-5.90); Red Cell Distribution Width 14.1 % (11.8-14.3); White Blood Cell 6.3 10^3/uL (4.4-10.8)
[2025-01-12 06:33] LABS: Chloride 104 mmol/L (98-107); Potassium 4.7 mmol/L (3.5-5.1); Sodium 143 mmol/L (136-145)
[2025-01-12 06:34] LABS: Anion Gap 8 (5-15); Calcium 8.9 mg/dL (8.7-10.4); Carbon Dioxide 31 mmol/L (20-31)
[2025-01-12 06:39] LABS: BUN/Creatinine Ratio 13.8 (10.0-20.0); Blood Urea Nitrogen 22 mg/dL (9-23); Glucose 92 mg/dL (74-106)
[2025-01-12 09:07] VITALS: BP 165/93; PULSE 64; RESP 19; TEMP 98.6; O2SAT 98
[2025-01-12] MEDS ORDERED: INSUINJ37 SC (10:45)
[2025-01-12] MEDS ORDERED: INSU100I54 SC (10:45)
[2025-01-12] MEDS ORDERED: APIX5TAB PO (10:45)
--- NOTE | 2025-01-12 10:47 | DVHDS2 ---
Discharge Summary Date of Admission Jan 09, 2025 at 14:51 Date of Discharge: Jan 12, 2025 Labs/Diagnostic Data: Laboratory Results Test 01/12/25 08:42 01/12/25 05:01 01/11/25 07:40 01/11/25 04:26 POC Glucose 81 mg/dl (70-106) White Blood Count 6.3 10^3/uL (4.4-10.8) Red Blood Count 3.68 10^6/uL (4.5-5.90) Hemoglobin 11.3 g/dL (13.5-17.5) Hematocrit 33.5 % (41.0-53.0) Mean Corpuscular Volume 91.0 fL (80.0-100.0) Mean Corpuscular Hemoglobin 30.7 pg (28.0-32.0) Mean Corpuscular Hemoglobin Concent 33.8 g/dL (32.0-36.0) Red Cell Distribution Width 14.1 % (11.8-14.3) Platelet Count 166 10^3/uL (140-450) Mean Platelet Volume 9.7 fL (6.9-10.8) Neutrophils (%) (Auto) 59.9 % (37.0-80.0) Lymphocytes (%) (Auto) 24.1 % (10.0-50.0) Monocytes (%) (Auto) 12.1 % (0.0-12.0) Eosinophils (%) (Auto) 2.9 % (0.0-7.0) Basophils (%) (Auto) 1.0 % (0.0-2.0) Neutrophils # (Auto) 3.8 10 ^3/uL (1.6-8.6) Lymphocytes # (Auto) 1.5 10 ^3/uL (0.4-5.4) Monocytes # (Auto) 0.8 10 ^3/uL (0-1.3) Eosinophils # (Auto) 0.2 10 ^3/uL (0-0.8) Basophils # (Auto) 0.1 10 ^3/uL (0-0.2) Nucleated Red Blood Cells 0.0 % Sodium Level 143 mmol/L (136-145) Potassium Level 4.7 mmol/L (3.5-5.1) Chloride Level 104 mmol/L (98-107) Carbon Dioxide Level 31 mmol/L (20-31) Anion Gap 8 (5-15) Blood Urea Nitrogen 22 mg/dL (9-23) Creatinine 1.60 mg/dL (0.700-1.30) Glomerular Filtration Rate Calc 51 mL/min (>90) BUN/Creatinine Ratio 13.8 (10.0-20.0) Serum Glucose 92 mg/dL (74-106) Calcium Level 8.9 mg/dL (8.7-10.4) Lactic Acid Level 2.1 mmol/L (0.4-2.0) Phosphorus Level 3.5 mg/dL (2.4-5.1) Magnesium Level 2.0 mg/dL (1.6-2.6) Total Bilirubin 0.4 mg/dL (0.2-1.0) Aspartate Amino Transferase (AST) 236 U/L (<34) Alanine Aminotransferase (ALT) 381 U/L (7-40) Alkaline Phosphatase 88 U/L (46-116) Total Protein 6.0 g/dL (5.7-8.2) Albumin 3.5 g/dL (3.2-4.8) Test 01/10/25 18:30 01/10/25 12:45 01/09/25 12:58 01/09/25 10:07 Urine Creatinine 29.61 mg/dL (30.0-125.0) Urine Protein/Creatinine Ratio 0.59 Urine Sodium 86 mmol/L (40-220) Urine Total Protein 17.5 mg/dL (1-14) Prothrombin Time 12.2 sec (9.3-11.8) Prothrombin Time INR 1.17 (0.9-1.15) Activated Partial Thromboplast Time 24.9 SEC (24.5-34.5) Urine Color Light-yellow (Yellow) Urine Clarity Clear (Clear) Urine pH 5.0 (5.0-9.0) Urine Specific [place] 1.012 (1.001-1.035) Urine Protein 1+ (Negative) Urine Ketones Negative (Negative) Urine Blood Trace /uL (Negative) Urine Nitrite Negative (Negative) Urine Bilirubin Negative (Negative) Urine Urobilinogen Normal mg/dL (Negative) Urine Leukocyte Esterase Negative /uL (Negative) Urine RBC 2 /hpf (0 - 3) Urine Microscopic WBC 1 /HPF (0-3) Urine Squamous Epithelial Cells Few /hpf (<5) Urine Bacteria None seen /hpf (None Seen) Urine Hyaline Casts Few /lpf (0 - 2) Urine Sperm Present /hpf (None Seen) Urine Glucose 3+ mg/dL (Normal) Urine Opiates Screen Neg (NEGATIVE) Urine Fentanyl Screen Neg (NEGATIVE) Urine Barbiturates Screen Neg (NEGATIVE) Urine Phencyclidine Screen Neg (NEGATIVE) Urine Amphetamines Screen Neg (NEGATIVE) Urine Benzodiazepines Screen Neg (NEGATIVE) Urine Cocaine Screen Neg (NEGATIVE) Urine Cannabinoids Screen Neg (NEGATIVE) Troponin I High Sensitivity 23 ng/L (</=54) B-Type Natriuretic Peptide 302.39 pg/mL (0-100) Beta-Hydroxybutyric Acid 2.767 mmol/L (< 0.4) Plasma/Serum Blood Alcohol < 3.0 mg/dL (<10) Test 01/09/25 10:01 Blood Gas Specimen Type Venous Blood Gas Sample Site Vbg - n/a Blood Gas Patient Temperature 37.0 Arterial Blood Date Drawn [id number] [place] Test N/a Venous Blood pH 7.095 (7.320-7.430) Venous Blood pCO2 at Patient Temp 26.7 mmHg (38.0-54.0) Venous Blood pO2 at Patient Temp 50.9 mmHg (23.0-48.0) Venous Blood HCO3 8.0 mmol/L (22.0-29.0) Venous Blood Base Excess -20.3 mmol/L (-2.0-3.0) Blood Gas Modality Room air FiO2 % 21.0 Blood Gas Critical Value Read Back Yes Blood Gas Notified Whom heron Vazquez Blood Gas Notified Time [id number] Blood Gas Notified By Anisa melgar Other Laboratory Tests 01/12/25 05:01 Final Diagnosis/Problems List DKA Discharge Disposition: Home Discharge Instruct/Medications Diet: Consistent carbohydrate, Cardiac 2g Na,low cholest Activity: No Restrictions, As Tolerated Follow [facility]Ref[facility] Medications: lantus lispro eliquis Discharge Statement: "Patient was advised to return to the ER or call 911 if any headaches, dizziness, shortness of breath, chest pain, abdominal pain, bleeding, fevers, or worsening of medical condition. Patient was counseled about treatment plan, medications, possible side effects, patientverbalized understanding. All questions were answered to the best of my ability. This discharge took greater then 30 minutes in planning, reviewing documentation, counseling the patient, and discussing with other team members." ASSESSMENT ASSESSMENT Assessment CLINTONA ALY TRUONG MD Jan 12, 2025 10:47
[2025-01-12] MEDS: INSULIN LISPRO (HUMAN) 100 UNITS/ML ML SC SCH (11:30)
[2025-01-12 13:17] VITALS: BP 158/89; PULSE 64; RESP 18; TEMP 98.4; O2SAT 98
[2025-01-13] MEDS ORDERED: INSULIN LANTUS (GLARGINE) 1 /0.01ml (100units/ml) SC SCH (10:00)
== END 2025-01-12 14:17 | disposition home or self-care (01) | DRG 637 ==
LOC: EDBD 09:35 → ER 09:35 → OVERFLOW 14:51 → ICU CENTRL 16:20 → TELE-WESTW 01-11 16:00 → WEST WING 01-11 16:36
PROVIDERS: ADMIT Student in an Organized Health Care Education/Training Program; ATTEND Student in an Organized Health Care Education/Training Program
PROC: 06HY33Z Insertion of Infusion Device into Lower Vein, Percutaneous Approach (ICD-10-PCS; principal; 2025-01-09)
PROC: 5A09357 Assistance with Respiratory Ventilation, Less than 24 Consecutive Hours, Continuous Positive Airway Pressure (ICD-10-PCS; 2025-01-10)
DX: E10.10 Type 1 diabetes mellitus with ketoacidosis without coma (principal); G93.41 Metabolic encephalopathy; J96.01 Acute respiratory failure with hypoxia; E87.1 Hypo-osmolality and hyponatremia; N17.9 Acute kidney failure, unspecified; I48.92 Unspecified atrial flutter; E10.22 Type 1 diabetes mellitus with diabetic chronic kidney disease; D64.9 Anemia, unspecified; E87.5 Hyperkalemia; I51.7 Cardiomegaly; I48.0 Paroxysmal atrial fibrillation; E78.5 Hyperlipidemia, unspecified; E66.9 Obesity, unspecified; Z96.41 Presence of insulin pump (external) (internal); N18.9 Chronic kidney disease, unspecified; F17.210 Nicotine dependence, cigarettes, uncomplicated; Z95.2 Presence of prosthetic heart valve; Z79.4 Long term (current) use of insulin; Z79.899 Other long term (current) drug therapy; Z79.01 Long term (current) use of anticoagulants; Z68.28 Body mass index [BMI] 28.0-28.9, adult
CPT/HCPCS: 36415; 36556; 36600; 71045; 76775; 80048; 80053; 80307; 80320; 81001; 82010; 82570; 82805; 82962; 83605; 83735; 83880; 84100; 84132; 84156; 84300; 84484; 85025; 85610; 85730; 87040; 87081; 93005; 93306; 94660; 99291; 99292; G0378; J1815